=== PATIENT | female | born 1960 | race Hispanic/Latino ===

== ENCOUNTER 2017-11-30 10:54 | Emergency (ER) | payer BC, SELFPAY ==
[2017-11-30 11:53] LABS: Absolute Lymphocytes (CBC) 1.5 K/uL (0.7-4.9); Absolute Monocytes 0.5 K/uL (0.1-1.3); Absolute Neutrophil 4.2 K/uL (1.8-8.0); Basophils % 0.6 % (0-1.3); Eosinophils % 0.7 % (0-4.4); Hematocrit 40.1 % (36.0-45.0); Lymphocytes % 24.4 % (15.3-44.8); MCH 27.8 pg (27.0-35.0); MPV 8.7 fL (7.6-11.3); Monocytes % 7.2 % (3.3-12.3); RBC Red Blood Cell Count 4.72 M/uL (3.86-4.86)
[2017-11-30 11:55] LABS: Protime INR 1.01
[2017-11-30 12:00] LABS: Potassium 3.7 mEq/L (3.6-5.0)
[2017-11-30 12:06] LABS: Bilirubin Direct 0.1 mg/dL (0-0.2); Bilirubin Total 0.7 mg/dL (0.3-1.2); Magnesium 1.6 mg/dL (1.8-2.5); Protein, Total 7.3 g/dL (6.0-8.3)
[2017-11-30] MEDS ORDERED: Magnesium Sulfate 2gm IVPB 2 G/50 ML BAG IV ONE (13:02)
--- NOTE | 2017-11-30 13:50 | RAD REPORT ---
EXAM DESCRIPTION: Barbie Single View11/30/2017 11:50 am CLINICAL HISTORY: sob COMPARISON: July 2017 FINDINGS: The lungs appear clear of acute infiltrate. The heart is normal size IMPRESSION: No acute abnormalities displayed
--- NOTE | 2017-11-30 13:59 | ER ---
Nurse's Notes [facility] Name: Zeynep Francis Age: 57 yrs Sex: Female : 1960 Arrival Date: 11/30/2017 Time: 10:55 Bed 20 Private MD: Diagnosis: Hypomagnesemia;Dyspnea, unspecified Presentation: 11/30 10:58 Presenting complaint: Patient states: SOB, pain with deep inspiration, and headache hb upon waking today. Transition of care: patient was not received from another setting of care. Onset of symptoms was November 30, 2017. Care prior to arrival: Medication(s) given: albuterol inhaler. 10:58 Method Of Arrival: Ambulatory hb 10:58 Acuity: MARLI 3 hb Triage Assessment: 11:11 General: Appears in no apparent distress. Respiratory: Onset: The symptoms/episode tw2 began/occurred this morning, the patient has mild shortness of breath. Historical: - Allergies: 11:00 PENICILLINS; hb - Home Meds: 11:00 glipizide 5 mg Oral tab 2 times per day [Active]; metformin 1,000 mg Oral tab 1 tab 2 hb times per day [Active]; lisinopril 2.5 mg Oral tab 1 tab once daily [Active]; albuterol sulfate 2.5 mg /3 mL (0.083 %) Inhl nebu [Active]; - PMHx: 11:00 Arthritis; brusitis; Diabetes - NIDDM; Hyperlipidemia; Hypertension; hb - PSHx: 11:00 ; Cholecystectomy; hb - Immunization history:: Adult Immunizations up to date. - Social history:: Smoking status: Patient/guardian denies using tobacco. Screenin:11 Abuse screen: Denies threats or abuse. Nutritional screening: No deficits noted. tw2 Tuberculosis screening: No symptoms or risk factors identified. Fall Risk None identified. Assessment: 11:08 General: Appears in no apparent distress. well groomed, Behavior is calm, cooperative, tw2 appropriate for age. Pain: Denies pain. Neuro: Level of Consciousness is awake, alert, obeys commands, Oriented to person, place, time, situation. Cardiovascular: Heart tones S1 S2 Capillary refill < 3 seconds Patient's skin is warm and dry. Rhythm is regular. Respiratory: Reports shortness of breath at rest Airway is patent Respiratory effort is even, unlabored, Respiratory pattern is regular, symmetrical, Breath sounds are clear. GI: Abdomen is round Bowel sounds present X 4 quads. : No signs and/or symptoms were reported regarding the genitourinary system. EENT: No signs and/or symptoms were reported regarding the EENT system. Derm: No signs and/or symptoms reported regarding the dermatologic system. Musculoskeletal: Range of motion: intact in all extremities. 12:40 Reassessment: Patient appears in no apparent distress at this time. No changes from tw2 previously documented assessment. Patient and/or family updated on plan of care and expected duration. Pain level reassessed. Patient is alert, oriented x 3, equal unlabored respirations, skin warm/dry/pink. 13:42 Reassessment: Patient appears in no apparent distress at this time. No changes from tw2 previously documented assessment. Patient and/or family updated on plan of care and expected duration. Pain level reassessed. Patient is alert, oriented x 3, equal unlabored respirations, skin warm/dry/pink. 14:21 Reassessment: Patient appears in no apparent distress at this time. No changes from tw2 previously documented assessment. Patient and/or family updated on plan of care and expected duration. Pain level reassessed. Patient is alert, oriented x 3, equal unlabored respirations, skin warm/dry/pink. Vital Signs: 10:59 BP 125 / 95; Pulse 76; Resp 18; Temp 97.8(TE); Pulse Ox 98% on R/A; Weight 81.65 kg hb (R); Height 4 ft. 11 in. (149.86 cm); Pain 10/10; 12:39 BP 114 / 74; Pulse 77; Resp 12; Pulse Ox 96% on R/A; tw2 13:42 BP 106 / 61; Pulse 67; Resp 15; Pulse Ox 95% on R/A; tw2 14:20 BP 107 / 57; Pulse 79; Resp 17; Pulse Ox 96% on R/A; tw2 10:59 Body Mass Index 36.36 (81.65 kg, 149.86 cm) hb ED Course: 10:55 Patient arrived in ED. as 10:59 Triage completed. hb 10:59 Arm band placed on right wrist. hb 11:01 Omer Valencia PA is PHCP. jr8 11:01 Buzz Zelaya MD is Attending Physician. jr8 11:04 Ngozi Heck, RN is Primary Nurse. tw2 11:10 Bed in low position. Call light in reach. Pulse ox on. NIBP on. tw2 11:11 No provider procedures requiring assistance completed. tw2 11:40 DD Sent. ag 11:40 Basic Metabolic Panel Sent. ag 11:40 BNP Sent. ag 11:40 CBC with Diff Sent. ag 11:40 LFT's Sent. ag 11:40 Magnesium Sent. ag 11:40 PT-INR Sent. ag 11:40 Troponin (emerg Dept Use Only) Sent. ag 11:40 Inserted saline lock: 20 gauge in right antecubital area, using aseptic technique. ag ,using aseptic technique. IV done by EMS student Dianne Lindquist Assisted and witnessed by me Blood collected. 11:48 X-ray completed. Portable x-ray completed in exam room. Patient tolerated procedure la2 well. 14:21 IV discontinued, intact, bleeding controlled, No redness/swelling at site. Pressure tw2 dressing applied. Administered Medications: 12:47 Drug: Magnesium Sulfate 2 grams Route: IVPB; Infused Over: 2 hrs; Site: right tw2 antecubital; 13:52 Follow up: Response: No adverse reaction; IV Status: Completed infusion tw2 Outcome: 13:59 Discharge ordered by . jr8 14:21 Discharged to home ambulatory. tw2 14:21 Condition: stable 14:21 Discharge instructions given to patient, Instructed on discharge instructions, follow up and referral plans. medication usage, Demonstrated understanding of instructions, follow-up care, medications, Prescriptions given X 1. 14:22 Patient left the ED. tw2 Signatures: Rizwana Lockhart Josh, PA PA jr8 Umu Ladd Heather, RN RN Ngozi Heck, RN RN tw2 Enriqueta Crockett la2 Corrections: (The following items were deleted from the chart) 11:00 10:59 BP 125 / 95; Pulse 76bpm; Resp 18bpm; Pulse Ox 98% RA; Temp 97.8F Temporal; 90.72 hb kg Reported; Height 4 ft. 11 in.; BMI: 40.3; Pain 10/10; hb 14:18 13:42 BP 166 / 1; Pulse 67bpm; Resp 15bpm; Pulse Ox 95% RA; tw2 tw2
--- NOTE | 2017-11-30 13:59 | EDPHYS ---
Physician Documentation [facility] Name: Zeynep Francis Age: 57 yrs Sex: Female : 1960 Arrival Date: 11/30/2017 Time: 10:55 Bed 20 Private MD: ED Physician Buzz Zelaya HPI: 11/30 11:54 This 57 yrs old Female presents to ER via Ambulatory with complaints of jr8 Shortness Of Breath. 11:54 The patient has shortness of breath at rest. Onset: The symptoms/episode began/occurred jr8 acutely, today. Duration: The symptoms are continuous. The patient's shortness of breath is aggravated by talking, walking. Associated signs and symptoms: Pertinent positives: chest pain, dizziness. Severity of symptoms: At their worst the symptoms were moderate in the emergency department the symptoms are unchanged. The patient has not experienced similar symptoms in the past. The patient has not recently seen a physician. Historical: - Allergies: 11:00 PENICILLINS; hb - Home Meds: 11:00 glipizide 5 mg Oral tab 2 times per day [Active]; metformin 1,000 mg Oral tab 1 tab 2 hb times per day [Active]; lisinopril 2.5 mg Oral tab 1 tab once daily [Active]; albuterol sulfate 2.5 mg /3 mL (0.083 %) Inhl nebu [Active]; - PMHx: 11:00 Arthritis; brusitis; Diabetes - NIDDM; Hyperlipidemia; Hypertension; hb - PSHx: 11:00 ; Cholecystectomy; hb - Immunization history:: Adult Immunizations up to date. - Social history:: Smoking status: Patient/guardian denies using tobacco. ROS: 11:54 Eyes: Negative for injury, pain, redness, and discharge, ENT: Negative for injury, jr8 pain, and discharge, Neck: Negative for injury, pain, and swelling, Abdomen/GI: Negative for abdominal pain, nausea, vomiting, diarrhea, and constipation, Back: Negative for injury and pain, MS/Extremity: Negative for injury and deformity, Skin: Negative for injury, rash, and discoloration. 11:54 Cardiovascular: Positive for chest pain, Negative for edema, orthopnea, palpitations, paroxysmal nocturnal dyspnea. 11:54 Respiratory: Positive for dyspnea on exertion, shortness of breath. 11:54 Neuro: Positive for dizziness, Negative for altered mental status, gait disturbance, headache, hearing loss, loss of consciousness, numbness, seizure activity, speech changes, syncope, near syncope, tingling, tinnitus, tremor, visual changes, weakness. Exam: 11:54 Eyes: Pupils equal round and reactive to light, extra-ocular motions intact. Lids and jr8 lashes normal. Conjunctiva and sclera are non-icteric and not injected. Cornea within normal limits. Periorbital areas with no swelling, redness, or edema. ENT: Nares patent. No nasal discharge, no septal abnormalities noted. Tympanic membranes are normal and external auditory canals are clear. Oropharynx with no redness, swelling, or masses, exudates, or evidence of obstruction, uvula midline. Mucous membranes moist. Neck: Trachea midline, no thyromegaly or masses palpated, and no cervical lymphadenopathy. Supple, full range of motion without nuchal rigidity, or vertebral point tenderness. No Meningismus. Cardiovascular: Regular rate and rhythm with a normal S1 and S2. No gallops, murmurs, or rubs. Normal PMI, no JVD. No pulse deficits. Respiratory: Lungs have equal breath sounds bilaterally, clear to auscultation and percussion. No rales, rhonchi or wheezes noted. No increased work of breathing, no retractions or nasal flaring. Abdomen/GI: Soft, non-tender, with normal bowel sounds. No distension or tympany. No guarding or rebound. No evidence of tenderness throughout. Back: No spinal tenderness. No costovertebral tenderness. Full range of motion. Skin: Warm, dry with normal turgor. Normal color with no rashes, no lesions, and no evidence of cellulitis. MS/ Extremity: Pulses equal, no cyanosis. Neurovascular intact. Full, normal range of motion. Neuro: Awake and alert, GCS 15, oriented to person, place, time, and situation. Cranial nerves II-XII grossly intact. Motor strength 5/5 in all extremities. Sensory grossly intact. Cerebellar exam normal. Normal gait. Vital Signs: 10:59 BP 125 / 95; Pulse 76; Resp 18; Temp 97.8(TE); Pulse Ox 98% on R/A; Weight 81.65 kg hb (R); Height 4 ft. 11 in. (149.86 cm); Pain 10/10; 12:39 BP 114 / 74; Pulse 77; Resp 12; Pulse Ox 96% on R/A; tw2 13:42 BP 106 / 61; Pulse 67; Resp 15; Pulse Ox 95% on R/A; tw2 14:20 BP 107 / 57; Pulse 79; Resp 17; Pulse Ox 96% on R/A; tw2 10:59 Body Mass Index 36.36 (81.65 kg, 149.86 cm) hb MDM: 11:01 Patient medically screened. [facility] 13:58 Data reviewed: vital signs, nurses notes, lab test result(s), EKG, radiologic studies, jr plain films, and as a result, I will discharge patient. Data interpreted: Pulse oximetry: on room air is 95 %. Interpretation: normal. Counseling: I had a detailed discussion with the patient and/or guardian regarding: the historical points, exam findings, and any diagnostic results supporting the discharge/admit diagnosis, lab results, radiology results, the need for outpatient follow up, a family practitioner, to return to the emergency department if symptoms worsen or persist or if there are any questions or concerns that arise at home. Response to treatment: the patient's symptoms have markedly improved after treatment. 11/30 11:23 Order name: Basic Metabolic Panel [facility] 11/30 11:23 Order name: BNP [facility] 11/30 11:23 Order name: CBC with Diff [facility] 11/30 11:23 Order name: LFT's [facility] 11/30 11:23 Order name: Magnesium [facility] 11/30 11:23 Order name: PT-INR [facility] 11/30 11:23 Order name: Troponin (emerg Dept Use Only) [facility] 11/30 11:23 Order name: DD [facility] 11/30 11:54 Order name: CBC with Automated Diff; Complete Time: 11:55 EDAK 11/30 11:55 Order name: Protime (+INR); Complete Time: 12:06 EDAK 11/30 11:55 Order name: D-Dimer; Complete Time: 12:06 EDMS 11/30 12:00 Order name: Basic Metabolic Panel; Complete Time: 12:32 EDMS 11/30 12:06 Order name: Liver (Hepatic) Function; Complete Time: 12:32 EDMS 11/30 12:06 Order name: Magnesium; Complete Time: 12:32 EDMS 11/30 11:23 Order name: XRAY Chest (1 view) [facility] 11/30 11:23 Order name: EKG; Complete Time: 11:24 [facility] 11/30 11:23 Order name: Cardiac monitoring; Complete Time: 11:39 [facility] 11/30 11:23 Order name: EKG - Nurse/Tech; Complete Time: 11:39 [facility] 11/30 11:23 Order name: IV Saline Lock; Complete Time: 11:39 [facility] 11/30 11:23 Order name: Labs collected and sent; Complete Time: 11:39 [facility] 11/30 11:23 Order name: O2 Per Protocol; Complete Time: 11:40 [facility] 11/30 11:23 Order name: O2 Sat Monitoring; Complete Time: 11:40 [facility] 11/30 11:23 Order name: Urine Dipstick-Ancillary (obtain specimen); Complete Time: 14:11 [facility] 11/30 12:06 Order name: Troponin (Emerg Dept Use Only); Complete Time: 12:32 [facility] 11/30 12:09 Order name: BNP B-Type Natriuretic Peptide; Complete Time: 12:32 [facility] 11/30 13:51 Order name: RAD; Complete Time: 13:58 [facility] 11/30 14:11 Order name: Urine Microscopic Only 11/30 14:15 Order name: Urine Dipstick--Ancillary (enter results) bd Administered Medications: 12:47 Drug: Magnesium Sulfate 2 grams Route: IVPB; Infused Over: 2 hrs; Site: right tw2 antecubital; 13:52 Follow up: Response: No adverse reaction; IV Status: Completed infusion tw2 Disposition: 11/30/17 13:59 Discharged to Home. Impression: Hypomagnesemia, Dyspnea, unspecified. - Condition is Stable. - Discharge Instructions: Hypomagnesemia, Shortness of Breath. - Prescriptions for Macrobid 100 mg Oral Capsule - take 1 capsule by ORAL route every 12 hours for 7 days; 14 capsule. - Medication Reconciliation Form, Thank You Letter, Antibiotic Education, Prescription Opioid Use, Work release form form. - Follow up: Private Physician; When: 1 - 2 days; Reason: Recheck today's complaints, Continuance of care, Re-evaluation by your physician. - Problem is new. - Symptoms have improved. Addendum: 12/02/2017 08:11 Co-signature as Attending Physician, Buzz Zelaya MD I agree with the assessment and c gomez plan of care. Signatures: Dispatcher [employer] Buzz Bravo MD MD cha Roszak, Josh, PA PA jr8 Kimmy Aparicio, RN RN Ngozi Heck RN RN tw2
[2017-11-30 14:26] LABS: Urine Blood NEGATIVE (NEG); Urine Glucose NEGATIVE (NEG); Urine Protein NEGATIVE (NEG); Urine pH 6.5 (5.0-7.0)
[2017-11-30 14:50] LABS: Urine Bacteria LOADED /HPF (<20); Urine Culture Reflex Order REFLEXED; Urine RBC <5 /HPF (NONE SEEN)
== END 2017-11-30 14:22 | disposition home or self-care (01) ==
LOC: ER 10:54
DX: E83.42 Hypomagnesemia (principal); I10 Essential (primary) hypertension; E11.9 Type 2 diabetes mellitus without complications; Z88.0 Allergy status to penicillin
CPT/HCPCS: 36415; 71045; 80048; 80076; 81003; 81015; 83735; 83880; 84484; 85025; 85379; 85610; 87077; 87086; 87088; 87186; 96365; 99284; J3475

== ENCOUNTER 2018-05-20 18:59 | Emergency (ER) | payer SELFPAY ==
[2018-05-20] MEDS ORDERED: MECLIZINE HCL 12.5 MG TAB ONE (19:37)
[2018-05-20] MEDS ORDERED: NA CHLORIDE 0.9% 1,000 ML ONE (19:37)
[2018-05-20] MEDS ORDERED: ALBUTEROL 2.5 MG/3 ML NEB SOL ONE (19:37)
[2018-05-20] MEDS ORDERED: IPRATROPIUM BROM 0.5MG/2.5ML ONE (19:37)
[2018-05-20 19:45] LABS: Arterial Blood Carboxyhemoglob 1.3 % (0-1.5); Blood O2 Saturation 96.1 % (92-98.5)
--- NOTE | 2018-05-20 19:59 | RAD REPORT ---
EXAM DESCRIPTION: CT - Head Brain Wo Cont - 05/20/2018 7:45 pm CLINICAL HISTORY: Dizziness COMPARISON: 2017 TECHNIQUE: Computed axial tomography of the head was obtained. IV contrast was not requested. All CT scans are performed using dose optimization technique as appropriate and may include automated exposure control or mA/KV adjustment according to patient size. FINDINGS: An intracranial bleed is not seen . The ventricles are normal in caliber. No extra-axial fluid collection is noted. Fluid within the sinuses/ mastoids is not seen. IMPRESSION: No acute intracranial abnormality is seen. If patient's symptoms persist MRI of the bra in would be recommended.
[2018-05-20 20:24] LABS: Absolute Lymphocytes (CBC) 2.3 K/uL (0.7-4.9); Absolute Monocytes 0.4 K/uL (0.1-1.3); Absolute Neutrophil 3.5 K/uL (1.8-8.0); Basophils % 0.6 % (0-1.3); Eosinophils % 0.8 % (0-4.4); Hematocrit 36.5 % (36.0-45.0); Lymphocytes % 36.3 % (15.3-44.8); MCH 29.5 pg (27.0-35.0); MCV 88.2 fL (80-100); MPV 8.1 fL (7.6-11.3); Monocytes % 7.1 % (3.3-12.3); RBC Red Blood Cell Count 4.14 M/uL (3.86-4.86)
[2018-05-20 20:28] LABS: Protime INR 0.92
[2018-05-20 21:01] LABS: ALT/SGPT 15 U/L (12-78); AST/SGOT 20 U/L (15-37); Albumin 3.5 g/dL (3.4-5.0); Alkaline Phosphatase 69 U/L (45-117); BUN Blood Urea Nitrogen 16 mg/dL (7-18); Bicarbonate 26 mmol/L (21-32); Bilirubin Direct < 0.1 mg/dL (0-0.2); Bilirubin Total 0.2 mg/dL (0.2-1.0); CKMB Creatine Kinase MB < 1.0 ng/mL (0.3-3.6); Creatine Phosphokinase 76 U/L (26-192); Glucose Level 116 mg/dL (74-106); Magnesium 2.1 mg/dL (1.8-2.4); NT PRO-BNP 92 pg/mL (<125); Potassium 3.8 mmol/L (3.5-5.1); Protein, Total 7.6 g/dL (6.4-8.2); Sodium Level 140 mmol/L (136-145); Troponin (Emerg Dept Use Only) < 0.02 ng/mL (0.0-0.045)
--- NOTE | 2018-05-20 21:24 | RAD REPORT ---
EXAM DESCRIPTION: Barbie Single View05/20/2018 7:52 pm CLINICAL HISTORY: Shortness of breath COMPARISON: November 2017 FINDINGS: The lungs appear clear of acute infiltrate. The heart is normal size IMPRESSION: No acute abnormalities displayed
--- NOTE | 2018-05-20 21:45 | EDPHYS ---
Physician Documentation [facility] Name: Zeynep Francis Age: 57 yrs Sex: Female : 1960 Arrival Date: 05/20/2018 Time: 19:02 Bed 16 Private MD: ED Physician Ahmet Nicholas HPI: 05/20 19:24 This 57 yrs old Female presents to ER via Ambulatory with complaints of pkl Dizziness, Breathing Difficulty. 19:24 The patient presents with sense of spinning. Onset: The symptoms/episode began/occurred pkl 2 day(s) ago. Associated signs and symptoms: Pertinent positives: shortness of breath, hoarseness of voice. Historical: - Allergies: 19:07 PENICILLINS; mg2 19:07 Aspirin; mg2 - Home Meds: 19:07 albuterol sulfate 2.5 mg /3 mL (0.083 %) Inhl nebu [Active]; glipizide 10 mg oral tab mg2 [Active]; lisinopril 2.5 mg Oral tab 1 tab once daily [Active]; metformin 1,000 mg Oral tab 1 tab 2 times per day [Active]; 19:07 pioglitazone 30 mg oral tab 1 tab once daily [Active]; mg2 - PMHx: 19:07 Diabetes - NIDDM; Hyperlipidemia; Hypertension; mg2 - PSHx: 19:07 Cholecystectomy; c section; mg2 - Immunization history:: Flu vaccine is up to date. - Social history:: Smoking status: Patient/guardian denies using tobacco, Patient/guardian denies using alcohol, street drugs, IV drugs. - Ebola Screening: : No symptoms or risks identified at this time. ROS: 19:24 Eyes: Negative for injury, pain, redness, and discharge. pkl 19:24 ENT: Positive for hoarseness. 19:24 Neck: Negative for stiffness. 19:24 Cardiovascular: Positive for chest pain. 19:24 Respiratory: Negative for shortness of breath. 19:24 Abdomen/GI: Negative for abdominal pain, nausea, vomiting, and diarrhea. 19:24 Back: Negative for acute changes. 19:24 : Negative for urinary symptoms. 19:24 MS/extremity: Negative for acute changes. 19:24 Skin: Negative for rash. 19:24 Neuro: Positive for dizziness, Negative for altered mental status. Exam: 19:24 Head/Face: Normocephalic, atraumatic. Eyes: Pupils equal round and reactive to light, pkl extra-ocular motions intact. Lids and lashes normal. Conjunctiva and sclera are non-icteric and not injected. Cornea within normal limits. Periorbital areas with no swelling, redness, or edema. ENT: Nares patent. No nasal discharge, no septal abnormalities noted. Tympanic membranes are normal and external auditory canals are clear. Oropharynx with no redness, swelling, or masses, exudates, or evidence of obstruction, uvula midline. Mucous membranes moist. Neck: Trachea midline, no thyromegaly or masses palpated, and no cervical lymphadenopathy. Supple, full range of motion without nuchal rigidity, or vertebral point tenderness. No Meningismus. Chest/axilla: Normal chest wall appearance and motion. Nontender with no deformity. No lesions are appreciated. Cardiovascular: Regular rate and rhythm with a normal S1 and S2. No gallops, murmurs, or rubs. Normal PMI, no JVD. No pulse deficits. 19:24 Respiratory: the patient does not display signs of respiratory distress, Respirations: normal, Breath sounds: are clear throughout. 19:24 Abdomen/GI: Bowel sounds: normal, Palpation: abdomen is soft and non-tender, in all quadrants. 19:24 Back: Exam negative for acute changes. 19:24 : Exam negative for acute changes. 19:24 Musculoskeletal/extremity: Exam is negative for acute changes. 19:24 Skin: Exam negative for rash. 19:24 Neuro: Orientation: is normal, Mentation: is normal, Cranial nerves: grossly normal, Motor: is normal. Vital Signs: 19:08 BP 125 / 74; Pulse 93; Resp 18; Temp 97.4; Pulse Ox 98% ; Weight 81.65 kg; Height 4 ft. mg2 11 in. (149.86 cm); Pain 7/10; 20:23 BP 109 / 56; Pulse 80; Resp 18; Pulse Ox 100% on Nebulizer Mask; ak1 19:08 Body Mass Index 36.36 (81.65 kg, 149.86 cm) mg2 MDM: 19:10 Patient medically screened. pkl 21:41 Data reviewed: vital signs, nurses notes, lab test result(s), EKG, radiologic studies, pkl CT scan, plain films. 05/20 19:20 Order name: Basic Metabolic Panel; Complete Time: 21:39 mg2 05/20 19:20 Order name: CBC with Diff; Complete Time: 21:39 mg2 05/20 19:20 Order name: Ckmb; Complete Time: 21:39 mg2 05/20 19:20 Order name: CPK; Complete Time: 21:39 mg2 05/20 19:20 Order name: LFT's; Complete Time: 21:39 mg2 05/20 19:20 Order name: Magnesium; Complete Time: 21:39 mg2 05/20 19:20 Order name: NT PRO-BNP; Complete Time: 21:39 mg2 05/20 19:20 Order name: PT-INR; Complete Time: 21:39 mg2 05/20 19:20 Order name: Ptt, Activated; Complete Time: :39 mg2 05/20 19:20 Order name: Troponin (emerg Dept Use Only); Complete Time: 21:39 mg2 05/20 19:20 Order name: D-Dimer; Complete Time: 21:39 mg2 05/20 19:20 Order name: ABG; Complete Time: 19:53 mg2 05/20 19:22 Order name: Hemoglobin A1c mg2 05/20 20:39 Order name: Urine Dipstick--Ancillary (enter results) ms 05/20 19:20 Order name: XRAY Chest (1 view); Complete Time: 21:39 mg2 05/20 19:20 Order name: EKG; Complete Time: 19:21 mg2 05/20 19:20 Order name: Cardiac monitoring; Complete Time: 19:40 mg2 05/20 19:20 Order name: EKG - Nurse/Tech; Complete Time: 19:28 mg2 05/20 19:20 Order name: IV Saline Lock; Complete Time: 20:06 mg2 05/20 19:20 Order name: Labs collected and sent; Complete Time: 20:07 mg2 05/20 19:20 Order name: O2 Per Protocol; Complete Time: 19:28 mg2 05/20 19:20 Order name: O2 Sat Monitoring; Complete Time: 19:28 mg2 05/20 19:20 Order name: Urine Dipstick-Ancillary (obtain specimen); Complete Time: 20:03 mg2 05/20 19:22 Order name: CT Head Brain wo Cont; Complete Time: 20:01 mg2 Administered Medications: 19:44 Drug: Antivert 25 mg Route: PO; ak1 20:22 Follow up: Response: No adverse reaction ak1 20:06 Drug: NS 0.9% 1000 ml Route: IV; Rate: 100 ml/hr; Site: right antecubital; ak1 21:54 Follow up: IV Status: Order to discontinue infusion ak1 20:06 Drug: Albuterol - atroVENT (3:1) (2.5 mg - 0.5 mg) 3 ml Route: Nebulizer; ak1 20:22 Follow up: Response: No adverse reaction ak1 Disposition: 05/20/18 21:44 Discharged to Home. Impression: Acute labyrinthitis. Acute dyspnea ( Resolved ). - Condition is Stable. - Prescriptions for Antivert 25 mg Oral Tablet - take 1 tablet by ORAL route every 8 hours As needed; 20 tablet. - Medication Reconciliation Form, Thank You Letter, Antibiotic Education, Prescription Opioid Use form. - Follow up: Private Physician; When: 2 - 3 days; Reason: Re-evaluation by your physician. - Problem is new. - Symptoms have improved. Signatures: Dispatcher [employer] EDPA Ahmet Nicholas MD MD pkl Qi Bethea RN RN ak1 [facility] Agustin RN RN mg2 Corrections: (The following items were deleted from the chart) 21:57 21:44 05/20/2018 21:44 Discharged to Home. Impression: Acute labyrinthitis. Acute ak1 dyspnea ( Resolved ). Condition is Stable. Forms are Medication Reconciliation Form, Thank You Letter, Antibiotic Education, Prescription Opioid Use. Follow up: Private Physician; When: 2 - 3 days; Reason: Re-evaluation by your physician. Problem is new. Symptoms have improved. pkl
--- NOTE | 2018-05-20 21:45 | ER ---
Nurse's Notes [facility] Name: Zeynep Francis Age: 57 yrs Sex: Female : 1960 Arrival Date: 05/20/2018 Time: 19:02 Bed 16 Private MD: Diagnosis: Acute labyrinthitis. Acute dyspnea ( Resolved ) Presentation: 05/20 19:04 Presenting complaint: Patient states: she has difficulty breathing and dizziness for 2 mg2 days. Transition of care: patient was not received from another setting of care. Onset of symptoms was May 18, 2018. Risk Assessment: Do you want to hurt yourself or someone else? Patient reports no desire to harm self or others. Initial Sepsis Screen: Does the patient meet any 2 criteria? No. Patient's initial sepsis screen is negative. Does the patient have a suspected source of infection? No. Patient's initial sepsis screen is negative. Care prior to arrival: None. 19:04 Method Of Arrival: Ambulatory mg2 19:04 Acuity: MARLI 3 mg2 Triage Assessment: 19:41 General: Appears in no apparent distress. Behavior is calm, cooperative. Pain: ak1 Complains of pain in headache, chest pain. EENT: No signs and/or symptoms were reported regarding the EENT system. 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 Gait is steady, Speech is normal, Facial symmetry appears normal. Cardiovascular: Reports shortness of breath. 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 GI: No signs and/or symptoms were reported involving the gastrointestinal system. : No signs and/or symptoms were reported regarding the genitourinary system. Derm: No signs and/or symptoms reported regarding the dermatologic system. Musculoskeletal: No signs and/or symptoms reported regarding the musculoskeletal system. Historical: - Allergies: 19:07 PENICILLINS; mg2 19:07 Aspirin; mg2 - Home Meds: 19:07 albuterol sulfate 2.5 mg /3 mL (0.083 %) Inhl nebu [Active]; glipizide 10 mg oral tab mg2 [Active]; lisinopril 2.5 mg Oral tab 1 tab once daily [Active]; metformin 1,000 mg Oral tab 1 tab 2 times per day [Active]; 19:07 pioglitazone 30 mg oral tab 1 tab once daily [Active]; mg2 - PMHx: 19:07 Diabetes - NIDDM; Hyperlipidemia; Hypertension; mg2 - PSHx: 19:07 Cholecystectomy; c section; mg2 - Immunization history:: Flu vaccine is up to date. - Social history:: Smoking status: Patient/guardian denies using tobacco, Patient/guardian denies using alcohol, street drugs, IV drugs. - Ebola Screening: : No symptoms or risks identified at this time. Screenin:15 Abuse screen: Denies threats or abuse. Denies injuries from another. Nutritional mg2 screening: No deficits noted. Tuberculosis screening: No symptoms or risk factors identified. Fall Risk None identified. Assessment: 19:42 Cardiovascular: Rhythm is sinus rhythm. Respiratory: Airway is patent Respiratory ak1 effort is even, unlabored, Breath sounds are clear. 19:43 Reassessment: pt in CT.. ak1 21:01 Reassessment: Patient appears in no apparent distress at this time. Patient and/or ak1 family updated on plan of care and expected duration. Pain level reassessed. pt resting with eyes closed, resp even and unlabored. will continue to monitor. Vital Signs: 19:08 BP 125 / 74; Pulse 93; Resp 18; Temp 97.4; Pulse Ox 98% ; Weight 81.65 kg; Height 4 ft. mg2 11 in. (149.86 cm); Pain 7/10; 20:23 BP 109 / 56; Pulse 80; Resp 18; Pulse Ox 100% on Nebulizer Mask; ak1 19:08 Body Mass Index 36.36 (81.65 kg, 149.86 cm) mg2 ED Course: 19:02 Patient arrived in ED. rg4 19:05 Triage completed. mg2 19:10 Ahmet Nicholas MD is Attending Physician. pkl 19:14 Qi Bethea, RN is Primary Nurse. ak1 19:15 Patient has correct armband on for positive identification. Pulse ox on. NIBP on. mg2 19:41 Arm band placed on Patient placed Patient notified of wait time. ak1 19:44 CT Head Brain wo Cont In Process Unspecified. EDMS 19:51 XRAY Chest (1 view) In Process Unspecified. EDMS 20:07 Initial lab(s) drawn, by me, sent to lab. Urine collected: clean catch specimen, EKG ak1 done, by ED staff, reviewed by Ahmet Nicholas MD. Inserted saline lock: 20 gauge in right antecubital area, using aseptic technique. Blood collected. 21:01 No provider procedures requiring assistance completed. ak1 21:50 IV discontinued, intact, bleeding controlled, No redness/swelling at site. Pressure ak1 dressing applied. Administered Medications: 19:44 Drug: Antivert 25 mg Route: PO; ak1 20:22 Follow up: Response: No adverse reaction ak1 20:06 Drug: NS 0.9% 1000 ml Route: IV; Rate: 100 ml/hr; Site: right antecubital; ak1 21:54 Follow up: IV Status: Order to discontinue infusion ak1 20:06 Drug: Albuterol - atroVENT (3:1) (2.5 mg - 0.5 mg) 3 ml Route: Nebulizer; ak1 20:22 Follow up: Response: No adverse reaction ak1 Outcome: 21:44 Discharge ordered by . pkliliana 21:49 Discharged to home ambulatory. ak1 21:49 Condition: improved 21:49 Discharge instructions given to patient, Instructed on discharge instructions, follow up and referral plans. medication usage, Demonstrated understanding of instructions, follow-up care, medications, Prescriptions given X 1. 21:57 Patient left the ED. ak1 Signatures: Dispatcher [employer] EDMS Ahmet Nicholas MD MD pkl Krenek, Amber RN RN ak1 Martha Lopez4 Kaiser Agustin RN RN mg2
[2018-05-20 22:30] LABS: Urine Blood NEGATIVE (NEG); Urine Glucose NEGATIVE (NEG); Urine Protein NEGATIVE (NEG); Urine Specific Gravity 1.025 (1.005-1.030)
--- NOTE | 2018-05-21 12:12 | EKG ---
Test Date: 2018-05-20 Test Time: 19:25:28 Stock Car Driver: SURESH MEASUREMENT RESULTS: Intervals: Rate: 82 SD: 172 QRSD: 62 QT: 366 QTc: 427 [place]: P: 32 SD: 172 QRS: 4 T: 18 INTERPRETIVE STATEMENTS: Normal sinus rhythm Low voltage QRS Cannot rule out Anterior infarct, age undetermined Abnormal ECG Compared to ECG 07/18/2017 15:46:20 Myocardial infarct finding now present Electronically Signed On 05-21-18 12:08:51 CDT by Jasvir An
== END 2018-05-20 21:57 | disposition home or self-care (01) ==
LOC: ER 18:59
DX: H83.09 Labyrinthitis, unspecified ear (principal); I10 Essential (primary) hypertension; E78.5 Hyperlipidemia, unspecified; E11.9 Type 2 diabetes mellitus without complications; Z88.0 Allergy status to penicillin; Z88.6 Allergy status to analgesic agent
CPT/HCPCS: 36415; 70450; 71045; 80048; 80076; 81003; 82550; 82553; 82805; 83735; 83880; 84484; 85025; 85379; 85610; 85730; 93005; 94640; 96360; 96361; 99285; J7030

== ENCOUNTER 2018-11-18 12:03 | Emergency (ER) | payer SELFPAY ==
[2018-11-18 12:57] LABS: Absolute Lymphocytes (CBC) 1.6 K/uL (0.7-4.9); Absolute Monocytes 0.4 K/uL (0.1-1.3); Absolute Neutrophil 2.3 K/uL (1.8-8.0); Basophils % 0.8 % (0-1.3); Eosinophils % 0.7 % (0-4.4); Hematocrit 37.4 % (36.0-45.0); MPV 8.4 fL (7.6-11.3); Monocytes % 8.1 % (3.3-12.3); RBC Red Blood Cell Count 4.42 M/uL (3.86-4.86)
[2018-11-18 13:17] LABS: BUN Blood Urea Nitrogen 20 mg/dL (7-18); Bicarbonate 29 mmol/L (21-32); Glucose Level 119 mg/dL (74-106); Potassium 4.2 mmol/L (3.5-5.1); Sodium Level 141 mmol/L (136-145); Troponin (Emerg Dept Use Only) < 0.02 ng/mL (0.0-0.045)
[2018-11-18 13:17] LABS: Urine Blood 2+ (NEG); Urine Glucose NEGATIVE (NEG); Urine Protein NEGATIVE (NEG)
--- NOTE | 2018-11-18 13:53 | ER ---
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 Transition of care: patient was not received from another setting of care. Onset of symptoms was November 18, 2018. Risk Assessment: Do you want to hurt yourself or someone else? Patient reports no desire to harm self or others. Care prior to arrival: None. 12:13 Method Of Arrival: Ambulatory hb 12:13 Acuity: MARLI 3 hb 14:14 Initial Sepsis Screen: Does the patient meet any 2 criteria? No. Patient's initial bp sepsis screen is negative. Does the patient have a suspected source of infection? No. Patient's initial sepsis screen is negative. Triage Assessment: 12:30 General: Appears in no apparent distress. comfortable, Behavior is calm, cooperative, bp appropriate for age. Pain: Denies pain. Historical: - Allergies: 12:17 PENICILLINS; hb 12:17 Aspirin; hb - Home Meds: 12:17 albuterol sulfate 2.5 mg /3 mL (0.083 %) Inhl nebu [Active]; glipizide 10 mg Oral tab hb [Active]; lisinopril 2.5 mg Oral tab 1 tab once daily [Active]; metformin 1,000 mg Oral tab 1 tab 2 times per day [Active]; pioglitazone 30 mg Oral tab 1 tab once daily [Active]; - PMHx: 12:17 Diabetes - NIDDM; Hyperlipidemia; Hypertension; hb - PSHx: 12:17 Cholecystectomy; c section; hb - Immunization history:: Adult Immunizations up to date. - Social history:: Smoking status: Patient/guardian denies using tobacco. - Ebola Screening: : No symptoms or risks identified at this time. - Family history:: not pertinent. - Hospitalizations: : No recent hospitalization is reported. Screenin:30 Abuse screen: Denies threats or abuse. Denies injuries from another. Nutritional bp screening: No deficits noted. Tuberculosis screening: No symptoms or risk factors identified. Fall Risk None identified. Vital Signs: 12:16 BP 124 / 87; Pulse 67; Resp 16; Temp 98.2; Pulse Ox 100% on R/A; Pain 0/10; hb 14:00 BP 131 / 79; Pulse 71; Resp 14; Pulse Ox 100% ; bp ED Course: 12:04 Patient arrived in ED. as 12:16 Triage completed. hb 12:17 Arm band placed on. hb 12:25 Ottoniel Greene MD is Attending Physician. rn 12:30 Patient has correct armband on for positive identification. Bed in low position. Call bp light in reach. Side rails up X2. Adult w/ patient. 12:33 EKG done, by special effects technician. reviewed by Ottoniel Greene MD. at1 12:39 Sonu Morales, RN is Primary Nurse. bp 12:59 Inserted saline lock: 20 gauge in right antecubital area, using aseptic technique. bp Blood collected. 14:14 No provider procedures requiring assistance completed. IV discontinued, intact, bp bleeding controlled, No redness/swelling at site. Pressure dressing applied. Administered Medications: No medications were administered Outcome: 13:52 Discharge ordered by . rn 14:03 Patient left the ED. hj 14:15 Discharged to home ambulatory, with family. bp 14:15 Condition: stable 14:15 Discharge instructions given to patient, Instructed on discharge instructions, follow up and referral plans. Demonstrated understanding of instructions, follow-up care. Signatures: Rizwana Lockhart Roman, MD MD rn Gonzales, Amanda, mechanical engineering technician EKG Tat1 Farhat Sams RN RN hj Kimmy Aparicio RN RN hb Sonu Morales, LORA RN bp
--- NOTE | 2018-11-18 13:53 | EDPHYS ---
Physician Documentation [facility] Name: Zeynep Francis Age: 58 yrs Sex: Female : 1960 Arrival Date: 11/18/2018 Time: 12:04 Bed 7 Private MD: ED Physician Ottoniel Greene HPI: 11/18 13:47 This 58 yrs old Female presents to ER via Ambulatory with complaints of rn Abnormal EKG, discombobulated. 13:47 Patient reports ran out of metformin recently, thought to take her actos, realized that rn actos used to make her confused and "discombobulated", seen by pcp today for refill, ekg obtained for intermittent chest pains, sent here for evaluation. Patient reports anxiety and chest pain, has been moving and stressful lately, are brief episodes, no fever/cough/trauma. NO current chest pain. Reports increased urination and feeling generalized weakness, also reports tingling of face/hands. . Onset: The symptoms/episode began/occurred at an unknown time. Severity of symptoms: At their worst the symptoms were mild in the emergency department the symptoms have improved. The patient has experienced similar episodes in the past. The patient has been recently seen by a physician:. Historical: - Allergies: 12:17 PENICILLINS; hb 12:17 Aspirin; hb - Home Meds: 12:17 albuterol sulfate 2.5 mg /3 mL (0.083 %) Inhl nebu [Active]; glipizide 10 mg Oral tab hb [Active]; lisinopril 2.5 mg Oral tab 1 tab once daily [Active]; metformin 1,000 mg Oral tab 1 tab 2 times per day [Active]; pioglitazone 30 mg Oral tab 1 tab once daily [Active]; - PMHx: 12:17 Diabetes - NIDDM; Hyperlipidemia; Hypertension; hb - PSHx: 12:17 Cholecystectomy; c section; hb - Immunization history:: Adult Immunizations up to date. - Social history:: Smoking status: Patient/guardian denies using tobacco. - Ebola Screening: : No symptoms or risks identified at this time. - Family history:: not pertinent. - Hospitalizations: : No recent hospitalization is reported. ROS: 13:47 Constitutional: Negative for fever, chills, and weight loss, Eyes: Negative for injury, rn pain, redness, and discharge, Neck: Negative for injury, pain, and swelling, Cardiovascular: Negative for edema, Respiratory: Negative for shortness of breath, cough, wheezing, and pleuritic chest pain, Abdomen/GI: Negative for abdominal pain, nausea, vomiting, diarrhea, and constipation, MS/Extremity: Negative for injury and deformity, Skin: Negative for injury, rash, and discoloration, Neuro: Negative for headache, numbness, tingling, and seizure. Exam: 13:47 Constitutional: This is a well developed, well nourished patient who is awake, alert, rn and in no acute distress. Head/Face: Normocephalic, atraumatic. Eyes: Pupils equal round and reactive to light, extra-ocular motions intact. Lids and lashes normal. Conjunctiva and sclera are non-icteric and not injected. Cornea within normal limits. Periorbital areas with no swelling, redness, or edema. ENT: dry MM Neck: Trachea midline, no thyromegaly or masses palpated, and no cervical lymphadenopathy. Supple, full range of motion without nuchal rigidity, or vertebral point tenderness. No Meningismus. Cardiovascular: Regular rate and rhythm. No pulse deficits. Respiratory: Lungs have equal breath sounds bilaterally, clear to auscultation. No increased work of breathing, no retractions or nasal flaring. Abdomen/GI: soft, non-tender Skin: Warm, dry MS/ Extremity: Pulses equal, no cyanosis. Neurovascular intact. Full, normal range of motion. Equal circumference. Neuro: Awake and alert, GCS 15, oriented to person, place, time, and situation. Cranial nerves II-XII grossly intact. Motor strength 5/5 in all extremities. Sensory grossly intact. Cerebellar exam normal. Normal gait. Vital Signs: 12:16 BP 124 / 87; Pulse 67; Resp 16; Temp 98.2; Pulse Ox 100% on R/A; Pain 0/10; hb 14:00 BP 131 / 79; Pulse 71; Resp 14; Pulse Ox 100% ; bp MDM: 12:25 Patient medically screened. rn 13:47 Differential Diagnosis hyperglycemia, medication side effect, anxiety. Data reviewed: rn vital signs, nurses notes, lab test result(s), EKG, and as a result, I will discharge patient. Counseling: I had a detailed discussion with the patient and/or guardian regarding: the historical points, exam findings, and any diagnostic results supporting the discharge/admit diagnosis, lab results, the need for outpatient follow up, to return to the emergency department if symptoms worsen or persist or if there are any questions or concerns that arise at home. Special discussion: I discussed with the patient/guardian in detail that at this point there is no indication for admission to the hospital. It is understood, however, that if the symptoms persist or worsen the patient needs to return immediately for re-evaluation. ED course: Already got refill of metformin, told her to not take her actos again, and f/u with pcp/cardiology if continues to have chest discomfort. . 11/18 12:33 Order name: CBC with Diff; Complete Time: 13:18 rn 11/18 12:33 Order name: Basic Metabolic Panel; Complete Time: 13:18 rn 11/18 12:33 Order name: EKG; Complete Time: 12:33 rn 11/18 12:33 Order name: Troponin (emerg Dept Use Only); Complete Time: 13:18 rn 11/18 12:42 Order name: Urine Dipstick--Ancillary (enter results); Complete Time: 13:18 bd 11/18 12:33 Order name: IV Start; Complete Time: 12:59 rn 11/18 12:33 Order name: Urine Dipstick-Ancillary (obtain specimen); Complete Time: 12:59 rn 11/18 12:33 Order name: EKG - Nurse/Tech; Complete Time: 12:58 rn 11/18 12:33 Order name: Glucose Level; Complete Time: 12:59 rn Administered Medications: No medications were administered Disposition: 11/18/18 13:52 Discharged to Home. Impression: Chest pain, unspecified, Dehydration, Patient's unintentional underdosing of medication regimen for other reason. - Condition is Stable. - Discharge Instructions: Nonspecific Chest Pain, Dehydration, Adult. - Medication Reconciliation Form, Thank You Letter, Antibiotic Education, Prescription Opioid Use form. - Follow up: Private Physician; When: As needed; Reason: Recheck today's complaints, Re-evaluation by your physician. - Problem is new. - Symptoms have improved. Signatures: Dispatcher [employer] EDMS Ottoniel Greene MD MD rn Joaquin, Henry, RN RN hj Baxter, Heather, RN RN Corrections: (The following items were deleted from the chart) 14:03 13:52 11/18/2018 13:52 Discharged to Home. Impression: Chest pain, unspecified; hj Dehydration; Patient's unintentional underdosing of medication regimen for other reason. Condition is Stable. Forms are Medication Reconciliation Form, Thank You Letter, Antibiotic Education, Prescription Opioid Use. Follow up: Private Physician; When: As needed; Reason: Recheck today's complaints, Re-evaluation by your physician. Problem is new. Symptoms have improved. rn
--- NOTE | 2018-11-20 10:32 | EKG ---
Test Date: 2018-11-18 Test Time: 12:28:39 Customer Records Division Supervisor: ERIKA MEASUREMENT RESULTS: Intervals: Rate: 63 AL: 178 QRSD: 66 QT: 412 QTc: 421 [place]: P: 23 AL: 178 QRS: 6 T: 13 INTERPRETIVE STATEMENTS: Normal sinus rhythm Low voltage QRS Borderline ECG Compared to ECG 05/20/2018 19:25:28 Myocardial infarct finding no longer present Electronically Signed On 11-19-18 08:12:18 CDT by Per Sorensen
== END 2018-11-18 14:03 | disposition home or self-care (01) ==
LOC: ER 12:03
DX: R07.9 Chest pain, unspecified (principal); E86.0 Dehydration; Z91.138 Patient's unintentional underdosing of medication regimen for other reason; R94.31 Abnormal electrocardiogram [ECG] [EKG]; I10 Essential (primary) hypertension; E11.9 Type 2 diabetes mellitus without complications; E78.5 Hyperlipidemia, unspecified
CPT/HCPCS: 36415; 80048; 81003; 84484; 85025; 93005; 99283

== ENCOUNTER 2019-08-12 12:24 | Emergency (ER) | payer SELFPAY ==
--- NOTE | 2019-08-12 13:13 | RAD REPORT ---
EXAM DESCRIPTION: RAD - Chest Pa And Lat (2 Views) - 08/12/2019 1:04 pm CLINICAL HISTORY: Congestion;Cough Chest pain. COMPARISON: Chest Single View dated 05/20/2018; Chest Single View dated 11/30/2017; Chest Single View dated 07/18/2017; Chest Single View dated 05/26/2017 FINDINGS: The lungs are clear. The heart is normal in size. No displaced fractures. IMPRESSION: No acute or concerning finding suspected.
--- NOTE | 2019-08-12 13:33 | ER ---
Nurse's Notes [facility] Name: Zeynep Hurst Age: 58 yrs Sex: Female : 1960 Arrival Date: 08/12/2019 Time: 12:28 Bed 28 Private MD: Diagnosis: Acute upper respiratory infection, unspecified Presentation: 08/12 12:31 Presenting complaint: Sore throat, pain with cough, chills, headache, body aches, N/V, hb and malaise x 2 days. Denies fever. Tolerating fluids. Transition of care: patient was not received from another setting of care. Onset of symptoms was August 12, 2019. Risk Assessment: Do you want to hurt yourself or someone else? Patient reports no desire to harm self or others. Initial Sepsis Screen: Does the patient meet any 2 criteria? No. Patient's initial sepsis screen is negative. Does the patient have a suspected source of infection? No. Patient's initial sepsis screen is negative. Care prior to arrival: None. 12:31 Method Of Arrival: Ambulatory hb 12:31 Acuity: MARLI 4 hb Historical: - Allergies: 12:34 Aspirin; hb 12:34 PENICILLINS; hb - Home Meds: 12:34 albuterol sulfate 2.5 mg /3 mL (0.083 %) Inhl nebu [Active]; glipizide 10 mg Oral tab hb [Active]; lisinopril 2.5 mg Oral tab 1 tab once daily [Active]; metformin 1,000 mg Oral tab 1 tab 2 times per day [Active]; pioglitazone 30 mg Oral tab 1 tab once daily [Active]; - PMHx: 12:34 Diabetes - NIDDM; Hyperlipidemia; Hypertension; hb - PSHx: 12:34 Cholecystectomy; c section; hb - Immunization history:: Adult Immunizations up to date. - Social history:: Smoking status: Patient/guardian denies using tobacco. - Ebola Screening: : No symptoms or risks identified at this time. Screenin:51 Abuse screen: Denies threats or abuse. Denies injuries from another. Nutritional aj1 screening: No deficits noted. Tuberculosis screening: No symptoms or risk factors identified. 13:41 Fall Risk None identified. aj1 Assessment: 12:51 General: Appears in no apparent distress. uncomfortable, Behavior is calm, cooperative, aj1 appropriate for age. Pain: Complains of pain in chest, left aspect of posterior pharynx and right aspect of posterior pharynx Pain does not radiate. Pain currently is 7 out of 10 on a pain scale. Pain began 2-3 days ago. Neuro: Level of Consciousness is awake, alert, obeys commands, Oriented to person, place, time, situation. Cardiovascular: Reports chest pain, Heart tones S1 S2 present Patient's skin is warm and dry. Respiratory: Reports cough that is hacking, persistent Airway is patent Respiratory effort is even, unlabored, Respiratory pattern is regular, symmetrical, Breath sounds are clear bilaterally. GI: No signs and/or symptoms were reported involving the gastrointestinal system. : No signs and/or symptoms were reported regarding the genitourinary system. EENT: No signs and/or symptoms were reported regarding the EENT system. Derm: No signs and/or symptoms reported regarding the dermatologic system. Skin is pink, warm \T\ dry. normal. Musculoskeletal: No signs and/or symptoms reported regarding the musculoskeletal system. Circulation, motion, and sensation intact. 13:40 Reassessment: Patient appears in no apparent distress at this time. No changes from aj1 previously documented assessment. Patient and/or family updated on plan of care and expected duration. Pain level reassessed. Patient is alert, oriented x 3, equal unlabored respirations, skin warm/dry/pink. Vital Signs: 12:34 BP 122 / 88; Pulse 62; Resp 16; Temp 98.2(TE); Pulse Ox 100% on R/A; Weight 88.45 kg; hb Height 4 ft. 11 in. (149.86 cm); Pain 7/10; 12:34 Body Mass Index 39.38 (88.45 kg, 149.86 cm) hb ED Course: 12:28 Patient arrived in ED. mr 12:33 Triage completed. hb 12:34 Arm band placed on. hb 12:36 [facility] Candelaria [facility]C [facility]. kb 12:36 James Montanez MD is Attending Physician. kb 12:49 Renay Avila, LORA is Primary Nurse. aj1 12:51 Patient has correct armband on for positive identification. Pulse ox on. NIBP on. aj1 12:51 No provider procedures requiring assistance completed. Patient maintains SpO2 aj1 saturation greater than 95% on room air. 13:05 Chest Pa And Lat (2 Views) XRAY In Process Unspecified. EDMS 13:07 Strep Sent. lt1 13:07 Flu Sent. lt1 13:40 Patient did not have IV access during this emergency room visit. aj1 Administered Medications: No medications were administered Outcome: 13:32 Discharge ordered by . maciej 13:41 Discharged to home ambulatory. aj1 13:41 Condition: good 13:41 Discharge instructions given to patient, Instructed on discharge instructions, follow up and referral plans. Demonstrated understanding of instructions, follow-up care. 13:42 Patient left the ED. aj1 Signatures: Dispatcher [employer] EDMS Marian Candelaria, GENERAL ACTIVITIES THERAPIST-C GENERAL ACTIVITIES THERAPIST-Renay Venegas, RN LORA aj1 Staci Turcios Heather, Janay Fowler RN [facility]
--- NOTE | 2019-08-12 13:34 | EDPHYS ---
Physician Documentation [facility] Name: Zeynep Hurst Age: 58 yrs Sex: Female : 1960 Arrival Date: 08/12/2019 Time: 12:28 Bed 28 Private MD: ED Physician James Montanez HPI: 08/12 13:31 This 58 yrs old Female presents to ER via Ambulatory with complaints of Chest kb Pain, Sore Throat, Breathing Difficulty. 13:31 The patient or guardian reports cough, that is intermittent, described as moderate, kb with no sputum, flu symptoms, low-grade fever, myalgias, hoarse voice. Onset: The symptoms/episode began/occurred 1 week(s) ago. Severity of symptoms: At their worst the symptoms were moderate, in the emergency department the symptoms are unchanged. Modifying factors: The symptoms are alleviated by nothing, the symptoms are aggravated by nothing. Associated signs and symptoms: Pertinent positives: nausea, rhinorrhea, sore throat, vomiting. The patient has not experienced similar symptoms in the past. The patient has not recently seen a physician. Historical: - Allergies: 12:34 Aspirin; hb 12:34 PENICILLINS; hb - Home Meds: 12:34 albuterol sulfate 2.5 mg /3 mL (0.083 %) Inhl nebu [Active]; glipizide 10 mg Oral tab hb [Active]; lisinopril 2.5 mg Oral tab 1 tab once daily [Active]; metformin 1,000 mg Oral tab 1 tab 2 times per day [Active]; pioglitazone 30 mg Oral tab 1 tab once daily [Active]; - PMHx: 12:34 Diabetes - NIDDM; Hyperlipidemia; Hypertension; hb - PSHx: 12:34 Cholecystectomy; c section; hb - Immunization history:: Adult Immunizations up to date. - Social history:: Smoking status: Patient/guardian denies using tobacco. - Ebola Screening: : No symptoms or risks identified at this time. ROS: 13:09 Neck: Negative for injury, pain, and swelling, Abdomen/GI: Negative for abdominal pain, kb nausea, vomiting, diarrhea, and constipation, Back: Negative for injury and pain, MS/Extremity: Negative for injury and deformity, Skin: Negative for injury, rash, and discoloration, Neuro: Negative for headache, weakness, numbness, tingling, and seizure. 13:09 Constitutional: Positive for body aches, chills, fatigue, malaise. 13:09 ENT: Positive for rhinorrhea, sinus congestion, sinus pain, sore throat. 13:09 Cardiovascular: Positive for chest pain, with cough. 13:09 Respiratory: Positive for cough, Negative for dyspnea on exertion, hemoptysis, orthopnea, pleurisy, shortness of breath, sputum production, wheezing. Exam: 13:30 Constitutional: This is a well developed, well nourished patient who is awake, alert, kb and in no acute distress. Head/Face: Normocephalic, atraumatic. Neck: Trachea midline, no thyromegaly or masses palpated, and no cervical lymphadenopathy. Supple, full range of motion without nuchal rigidity, or vertebral point tenderness. No Meningismus. Chest/axilla: Normal chest wall appearance and motion. Nontender with no deformity. No lesions are appreciated. Cardiovascular: Regular rate and rhythm with a normal S1 and S2. No gallops, murmurs, or rubs. Normal PMI, no JVD. No pulse deficits. Respiratory: Lungs have equal breath sounds bilaterally, clear to auscultation and percussion. No rales, rhonchi or wheezes noted. No increased work of breathing, no retractions or nasal flaring. Abdomen/GI: Soft, non-tender, with normal bowel sounds. No distension or tympany. No guarding or rebound. No evidence of tenderness throughout. Skin: Warm, dry with normal turgor. Normal color with no rashes, no lesions, and no evidence of cellulitis. MS/ Extremity: Pulses equal, no cyanosis. Neurovascular intact. Full, normal range of motion. Neuro: Awake and alert, GCS 15, oriented to person, place, time, and situation. Cranial nerves II-XII grossly intact. Motor strength 5/5 in all extremities. Sensory grossly intact. Cerebellar exam normal. Normal gait. 13:30 ENT: External ear(s): are unremarkable, Ear canal(s): are normal, TM's: are normal, Nose: is normal, Mouth: is normal, Posterior pharynx: is normal, Voice: is hoarse. Vital Signs: 12:34 BP 122 / 88; Pulse 62; Resp 16; Temp 98.2(TE); Pulse Ox 100% on R/A; Weight 88.45 kg; hb Height 4 ft. 11 in. (149.86 cm); Pain 7/10; 12:34 Body Mass Index 39.38 (88.45 kg, 149.86 cm) hb MDM: 12:37 Patient medically screened. kb 13:09 Data reviewed: vital signs, nurses notes. Data interpreted: Pulse oximetry: on room air kb is 100 %. Interpretation: normal. 13:31 Counseling: I had a detailed discussion with the patient and/or guardian regarding: the kb historical points, exam findings, and any diagnostic results supporting the discharge/admit diagnosis, lab results, radiology results, the need for outpatient follow up, a family practitioner, to return to the emergency department if symptoms worsen or persist or if there are any questions or concerns that arise at home. 08/12 12:37 Order name: Flu; Complete Time: 13:29 kb 08/12 12:37 Order name: Strep; Complete Time: 13:14 kb 08/12 12:45 Order name: Chest Pa And Lat (2 Views) XRAY; Complete Time: 13:18 kb 08/12 13:13 Order name: Throat Culture EDMS Administered Medications: No medications were administered Disposition: 19:01 Co-signature as Attending Physician, James Montanez MD Signing chart for administrative ps1 purposes. Available for consultation in ED. . Disposition: 08/12/19 13:32 Discharged to Home. Impression: Acute upper respiratory infection, unspecified. - Condition is Stable. - Discharge Instructions: Upper Respiratory Infection, Adult, Ircl-mg-Edwn, Viral Respiratory Infection, Zium-Se-Yybt. - Medication Reconciliation Form, Thank You Letter, Antibiotic Education, Prescription Opioid Use form. - Follow up: Emergency Department; When: As needed; Reason: Worsening of condition. Follow up: Private Physician; When: 2 - 3 days; Reason: Recheck today's complaints, Continuance of care, Re-evaluation by your physician. Signatures: Dispatcher [employer] EDMS Marian Candelaria, CHARLEE RAVI-Renay Venegas RN RN aj1 Kimmy Aparicio, RN RN hb James Montanez MD MD ps1 Corrections: (The following items were deleted from the chart) 13:42 13:32 08/12/2019 13:32 Discharged to Home. Impression: Acute upper respiratory aj1 infection, unspecified. Condition is Stable. Forms are Medication Reconciliation Form, Thank You Letter, Antibiotic Education, Prescription Opioid Use. Follow up: Emergency Department; When: As needed; Reason: Worsening of condition. Follow up: Private Physician; When: 2 - 3 days; Reason: Recheck today's complaints, Continuance of care, Re-evaluation by your physician. kb
[2019-08-12 14:28] VITALS: BP 122/88; TEMP 98.2; O2SAT 100
== END 2019-08-12 13:42 | disposition home or self-care (01) ==
LOC: ER 12:24
DX: J06.9 Acute upper respiratory infection, unspecified (principal); Z88.0 Allergy status to penicillin; Z88.6 Allergy status to analgesic agent; E11.9 Type 2 diabetes mellitus without complications; E78.5 Hyperlipidemia, unspecified; I10 Essential (primary) hypertension
CPT/HCPCS: 71046; 87070; 87081; 87804; 99284

== ENCOUNTER 2020-10-13 14:13 | Emergency (ER) | payer SELFPAY ==
--- OUTSIDE RECORDS SUMMARY | 2020-10-13 14:16 | XMS REPORT | Continuity of Care Document ---
:1960 Author Organization [facility] t Address [address] [place] [address] Care Team Providers Name Role Phone Ruff TRAV Attending Clinician Problems This patient has no known problems. Allergies, Adverse Reactions, Alerts This patient has no known allergies or adverse reactions. Medications This patient has no known medications. Procedures This patient has no known procedures. Encounters Start End Encounter Admission Attending Care Care Encounter Source Date/Time Date/Time Type Type Clinicians Facility Department ID 2020-06-05 2020-06-05 Emergency KENIA Ruff [id number] 22:11:00 23:40:00 Irineo Sanchez [id number] [place] [id number] [place] [id number] Results This patient has no known results.
[2020-10-13 15:01] LABS: Urine Blood NEGATIVE (NEG); Urine Glucose 2+ (NEG); Urine Protein NEGATIVE (NEG); Urine Specific Gravity 1.025 (1.005-1.030)
[2020-10-13 20:00] LABS: Absolute Lymphocytes (CBC) 0.6 K/uL (0.7-4.9); Basophils % 0.5 % (0-1.3); Hematocrit 41.5 % (36.0-45.0); Lymphocytes % 20.5 % (15.3-44.8); MPV 8.7 fL (7.6-11.3); RBC Red Blood Cell Count 4.82 M/uL (3.86-4.86)
[2020-10-13 20:02] LABS: Protime INR 1.1
[2020-10-13] MEDS ORDERED: NA CHLORIDE 0.9% 500 ML ONE (20:03)
[2020-10-13] MEDS ORDERED: BENZONATATE 100 MG CAP PO ONE (20:03)
--- NOTE | 2020-10-13 20:12 | RAD REPORT ---
EXAM DESCRIPTION: RAD - Chest Single View - 10/13/2020 8:00 pm CLINICAL HISTORY: Cough;Chest pain Chest pain. COMPARISON: Chest Pa And Lat (2 Views) dated 08/12/2019; Chest Single View dated 05/20/2018; Chest Sin gle View dated 11/30/2017; Chest Single View dated 07/18/2017 FINDINGS: Portable technique limits examination quality. The lungs are grossly clear. The heart is normal in size. No displaced fractures. IMPRESSION: No acute intrathoracic process suspected.
[2020-10-13 20:15] LABS: ALT/SGPT 17 U/L (12-78); AST/SGOT 20 U/L (15-37); Albumin 3.6 g/dL (3.4-5.0); Alkaline Phosphatase 98 U/L (45-117); BUN Blood Urea Nitrogen 14 mg/dL (7-18); Bicarbonate 25 mmol/L (21-32); Bilirubin Direct 0.1 mg/dL (0-0.2); Bilirubin Total 0.3 mg/dL (0.2-1.0); Ferritin 130.2 ng/mL (8-388); Glucose Level 373 mg/dL (74-106); Magnesium 2.3 mg/dL (1.8-2.4); NT PRO-BNP 14 pg/mL (<125); Potassium 4.2 mmol/L (3.5-5.1); Protein, Total 7.8 g/dL (6.4-8.2); Sodium Level 132 mmol/L (136-145); Troponin (Emerg Dept Use Only) < 0.02 ng/mL (0.0-0.045)
--- NOTE | 2020-10-13 20:50 | RAD REPORT ---
EXAM DESCRIPTION: US - Extremity Venous Uni Ltd - 10/13/2020 8:35 pm CLINICAL HISTORY: Pain;Swelling Leg swelling and edema. COMPARISON: Extrem Venous W Compress Reginald dated 05/26/2017 FINDINGS: Left lower extremity venous system was interrogated with Doppler technique. Normal flow, c ompressibility and augmentation was noted. There is no DVT present. IMPRESSION: No evidence of left lower extremity deep venous thrombosis.
[2020-10-13] MEDS ORDERED: METHYLPREDNISOLONE 40 MG INJ ONE (20:58)
[2020-10-13] MEDS ORDERED: INSULIN -REGULAR HUMAN 50 UNIT/0.5 ML ML ONE (20:58)
--- NOTE | 2020-10-13 21:23 | RAD REPORT ---
EXAM DESCRIPTION: CT - Chest For Pe Angio - 10/13/2020 9:13 pm CLINICAL HISTORY: Chest pain. Chest pain;Cough;SOB COMPARISON: <Comparisons> TECHNIQUE: CT angiogram of the pulmonary arteries was performed with MIP. All CT scans are performed using dose optimization technique as appropriate and may include automated exposure control or mA/KV adjustment according to patient size. FINDINGS: No evidence of pulmonary thromboembolism. No acute aortic finding demonstrated. Moderate bilateral ground-glass opacities are seen along the periphery of both lungs and in the lung bases. No significant pericardial or pleural fluid. No concerning bony finding. IMPRESSION: No evidence of pulmonary thromboembolism. Moderate bilateral ground-glass opacities seen along the periphery of both lungs and in the lung base s compatible with history of COVID-19 infection.
[2020-10-13] MEDS ORDERED: AZITHROMYCIN 250 MG TAB ONE (22:14)
--- NOTE | 2020-10-13 22:14 | EDPHYS ---
Physician Documentation [facility] Name: Zeynep Hurst Age: 59 yrs Sex: Female : 1960 Arrival Date: 10/13/2020 Time: 14:17 Bed 5 Private MD: ED Physician Buzz Zelaya HPI: 10/13 19:35 This 59 yrs old Female presents to ER via Ambulatory with complaints of cp COVID+, Chest Pain. 19:35 The patient or guardian reports cough, that is intermittent. cp 19:35 Onset: The symptoms/episode began/occurred 1 week(s) ago. Associated signs and cp symptoms: Pertinent positives: chest pain, Pertinent negatives: diarrhea, fever, vomiting. Severity of symptoms: in the emergency department the symptoms are unchanged despite home interventions. Patient reports testing positive for COVID-19 6 days ago. Historical: - Allergies: 14:24 Aspirin; sv 14:24 PENICILLINS; sv - PMHx: 14:24 Diabetes - NIDDM; Hyperlipidemia; Hypertension; sv - PSHx: 14:24 Cholecystectomy; c section; sv - Immunization history:: Flu vaccine is not up to date. - Social history:: Smoking status: Patient denies any tobacco usage or history of. ROS: 19:40 Constitutional: Negative for body aches, chills, fever, poor PO intake. cp 19:40 Eyes: Negative for injury, pain, redness, and discharge. cp 19:40 ENT: Negative for ear pain, sore throat, difficulty swallowing, difficulty handling secretions. 19:40 Cardiovascular: Positive for chest pain, Negative for edema, palpitations. 19:40 Respiratory: Positive for cough, "sounds productive", shortness of breath, on exertion. Negative for wheezing. 19:40 Abdomen/GI: Negative for abdominal pain, nausea, vomiting, and diarrhea, constipation, black/tarry stool, rectal bleeding. 19:40 Back: Negative for pain at rest, pain with movement. 19:40 : Positive for urinary frequency, burning with urination. 19:40 Skin: Negative for cellulitis, rash. 19:40 Neuro: Negative for altered mental status, dizziness, headache, syncope, weakness. 19:40 All other systems are negative. Exam: 19:42 ECG was reviewed by the Attending Physician. cp 19:45 Constitutional: The patient appears in no acute distress, alert, awake, cp non-diaphoretic, non-toxic, well developed, well nourished. 19:45 Head/Face: Normocephalic, atraumatic. cp 19:45 Eyes: Periorbital structures: appear normal, Conjunctiva: normal, no exudate, no injection, Sclera: no appreciated abnormality, Lids and lashes: appear normal, bilaterally. 19:45 ENT: External ear(s): are unremarkable, Nose: is normal, Mouth: Lips: moist, Oral mucosa: moist, Posterior pharynx: Airway: no evidence of obstruction, patent, Tonsils: are normal in appearance, erythema, is not appreciated, exudate, is not appreciated. 19:45 Neck: ROM/movement: is normal, is supple, without pain, no range of motions limitations, no meningismus. 19:45 Chest/axilla: Inspection: normal, Palpation: is normal, no crepitus, no tenderness. 19:45 Cardiovascular: Rate: normal, Rhythm: regular, Edema: is not appreciated, JVD: is not appreciated. 19:45 Respiratory: the patient does not display signs of respiratory distress, Respirations: normal, no use of accessory muscles, no retractions, labored breathing, is not present, Breath sounds: bronchial sounds, that are mild, are heard diffusely, decreased breath sounds, are not appreciated, stridor, is not appreciated, wheezing: is not appreciated. 19:45 Abdomen/GI: Inspection: abdomen appears normal, Palpation: abdomen is soft and non-tender, in all quadrants. 19:45 Back: pain, is absent, ROM is normal. 19:45 Skin: no rash present. 19:45 Neuro: Orientation: to person, place \\T\\ time. Mentation: is normal, Cerebellar function: is grossly normal, Motor: moves all fours, strength is normal, Sensation: is normal. Vital Signs: 14:21 BP 114 / 81; Pulse 109; Resp 18; Temp 98.2; Pulse Ox 97% ; Weight 83.91 kg; Height 4 sv ft. 11 in. (149.86 cm); Pain 9/10; 19:51 BP 132 / 74; Pulse 96; Resp 25; Pulse Ox 94% on R/A; rv 20:22 BP 122 / 75; Pulse 94; Resp 23; Pulse Ox 95% on R/A; rv 21:40 BP 134 / 73; Pulse 92; Resp 20; Pulse Ox 92% on R/A; wh 22:39 BP 130 / 77; Pulse 96; Resp 20; Pulse Ox 92% on R/A; wh 14:21 Body Mass Index 37.37 (83.91 kg, 149.86 cm) sv MDM: 19:27 Patient medically screened. zaida 19:32 Patient medically screened. zaida 22:10 Data reviewed: vital signs, nurses notes, lab test result(s), EKG, radiologic studies, cp CT scan, plain films. 22:10 Test interpretation: by ED physician or midlevel provider: ECG, plain radiologic cp studies. Counseling: I had a detailed discussion with the patient and/or guardian regarding: the historical points, exam findings, and any diagnostic results supporting the discharge/admit diagnosis, lab results, radiology results, the need for outpatient follow up, a family practitioner, to return to the emergency department if symptoms worsen or persist or if there are any questions or concerns that arise at home. Response to treatment: the patient's symptoms have markedly improved after treatment. ED course: VSS. Patient appears non-toxic and no signs of respiratory distress. Patient maintains oxygen sats above 90% on RA after ambulation. Will discharge to home for continued monitoring. 10/13 14:52 Order name: Urine Dipstick--Ancillary (enter results); Complete Time: 19:28 em1 10/13 19:31 Order name: Basic Metabolic Panel cp / 19:31 Order name: CBC with Diff cp 10/13 19:31 Order name: LFT's; Complete Time: 20:32 cp 10/13 19:31 Order name: Magnesium; Complete Time: 20:32 cp /04 19:31 Order name: NT PRO-BNP; Complete Time: 20:32 cp /04 19:31 Order name: PT-INR; Complete Time: 20:32 cp /04 19:31 Order name: Troponin (emerg Dept Use Only); Complete Time: 20:32 cp /04 19:31 Order name: XRAY Chest (1 view); Complete Time: 20:32 cp /04 19:31 Order name: Ferritin; Complete Time: 20:32 cp / 19:31 Order name: CRP; Complete Time: 20:32 cp /04 19:31 Order name: D-Dimer; Complete Time: 20:32 cp 02/04 19:31 Order name: Basic Metabolic Panel; Complete Time: 20:32 EDMS 02/04 21:48 Interpretation: Normal except: NA 132; GLUC 373; GFR 62; CA 8.4. cp 02/04 19:31 Order name: CBC with Automated Diff; Complete Time: 20:32 EDMS /04 14:52 Order name: Urine Dipstick-Ancillary (obtain specimen); Complete Time: 14:52 em1 10/13 19:31 Order name: EKG; Complete Time: 19:32 cp /04 19:31 Order name: Cardiac monitoring; Complete Time: 19:49 cp /04 19:31 Order name: EKG - Nurse/Tech; Complete Time: 19:49 cp / 19:31 Order name: IV Saline Lock; Complete Time: 19:49 cp /04 19:31 Order name: Labs collected and sent; Complete Time: 19:49 cp 10/13 19:31 Order name: O2 Per Protocol; Complete Time: 19:49 cp 10/13 19:31 Order name: O2 Sat Monitoring; Complete Time: 19:49 cp /04 19:31 Order name: US Extremity Venous Unilateral Ltd; Complete Time: 21:47 cp /04 21:47 Interpretation: Report reviewed. cp 10/13 20:34 Order name: CT Chest For PE Angio; Complete Time: 21:47 cp EC:42 Rate is 97 beats/min. Rhythm is regular. WI interval is normal. QRS interval is normal. cp QT interval is normal. T waves are Inverted in lead III. Interpreted by me. Reviewed by me. Administered Medications: 19:49 Drug: NS 0.9% 500 ml Route: IV; Rate: bolus; Site: right antecubital; rv 22:41 Follow up: Response: No adverse reaction; IV Status: Completed infusion 19:49 Drug: Tessalon Perle 200 mg Route: PO; rv 22:41 Follow up: Response: No adverse reaction 20:48 Drug: NovoLIN R 10 units {Co-Signature: rv (Burke Rios RN).} Route: Sub-Q; Site: wh right lower abdomen; 22:41 Follow up: Response: No adverse reaction 20:48 Drug: SOLU-Medrol 80 mg Route: IVP; Site: right antecubital; 22:41 Follow up: Response: No adverse reaction 22:00 Drug: Zithromax 500 mg Route: PO; 22:40 Follow up: Response: No adverse reaction 22:18 Drug: Albuterol HFA Inhaler 2 puffs Route: Inhalation; 22:40 Follow up: Response: No adverse reaction Disposition: 10/14 05:58 Co-signature as Attending Physician, Buzz Zelaya MD I agree with the assessment and zaida plan of care. Disposition: 10/13/20 22:13 Discharged to Home. Impression: Coronavirus infection, unspecified, Pneumonia due to other specified infectious organisms. - Condition is Stable. - Discharge Instructions: Community-Acquired Pneumonia, Adult, COVID-19. - Prescriptions for ivermectin 3 mg Oral tablet - take 5 tablet by ORAL route every other day x2 doses; 10 tablet. Tessalon Perles 100 mg Oral Capsule - take 2 capsule by ORAL route every 8 hours As needed; 30 capsule. Zithromax Z- James 250 mg Oral Tablet - take 1 tablet by ORAL route as directed for 5 days Day 1 - take two (2) tablets one time. Day 2, 3, 4 , 5 take one (1) tablet once daily.; 6 tablet. Prednisone 20 mg Oral Tablet - take 2 tablets by ORAL route once daily for 5 days then 1 tablet daily for 5 days; 15 tablet. - Medication Reconciliation Form, Thank You Letter, Antibiotic Education, Prescription Opioid Use form. - Follow up: Private Physician; When: 1 - 2 days; Reason: Recheck today's complaints. - Problem is new. - Symptoms have improved. Signatures: Dispatcher [employer] Melany Escalante, RN Buzz Gomez MD MD cha Martinez, Eric em1 Buzz Wahl PA PA cp Habalo, Winsy, RN RN Burke Rios RN RN rv Burke Rios RN rv Corrections: (The following items were deleted from the chart) 10/13 21:49 21:48 Normal except: NA 132; GLUC 373; GFR 62. cp cp 22:41 22:13 10/13/2020 22:13 Discharged to Home. Impression: Coronavirus infection, wh unspecified; Pneumonia due to other specified infectious organisms. Condition is Stable. Forms are Medication Reconciliation Form, Thank You Letter, Antibiotic Education, Prescription Opioid Use. Follow up: Private Physician; When: 1 - 2 days; Reason: Recheck today's complaints. Problem is new. Symptoms have improved. cp
--- NOTE | 2020-10-13 22:14 | ER ---
Nurse's Notes [facility] Name: Zeynep Hurst Age: 59 yrs Sex: Female : 1960 Arrival Date: 10/13/2020 Time: 14:17 Bed 5 Private MD: Diagnosis: Coronavirus infection, unspecified;Pneumonia due to other specified infectious organisms Presentation: 10/13 14:21 Chief complaint:. Chief complaint: Patient states: 1. Covid positive 6 days ago. CP and sv SOB for 2-3 days. No high fever. +weakness and fatigue. 2. Dysuria for 1 week. Coronavirus screen: Client denies travel out of the [place] in the last 14 days. At this time, the client does not indicate any symptoms associated with coronavirus-19. Ebola Screen: Patient denies travel to an Ebola-affected area in the 21 days before illness onset. Initial Sepsis Screen: Does the patient meet any 2 criteria? HR > 90 bpm. No. Patient's initial sepsis screen is negative. Does the patient have a suspected source of infection? Yes: Productive cough/pneumonia. Risk Assessment: Do you want to hurt yourself or someone else? Patient reports no desire to harm self or others. Onset of symptoms was October 08, 2020. 14:21 Method Of Arrival: Ambulatory sv 14:21 Acuity: MARLI 3 sv Historical: - Allergies: 14:24 Aspirin; sv 14:24 PENICILLINS; sv - PMHx: 14:24 Diabetes - NIDDM; Hyperlipidemia; Hypertension; sv - PSHx: 14:24 Cholecystectomy; c section; sv - Immunization history:: Flu vaccine is not up to date. - Social history:: Smoking status: Patient denies any tobacco usage or history of. Screenin:50 Abuse screen: Denies threats or abuse. Denies injuries from another. Nutritional rv screening: No deficits noted. Tuberculosis screening: No symptoms or risk factors identified. Fall Risk None identified. Assessment: 19:50 General: Appears comfortable, Behavior is calm, cooperative. Pain: Complains of pain in rv chest Pain does not radiate. Pain began gradually. Neuro: Level of Consciousness is awake, alert, obeys commands, Oriented to person, place, time, situation. Cardiovascular: Patient's skin is warm and dry. Rhythm is regular. Respiratory: Reports cough that is persistent Airway is patent Respiratory effort is even, unlabored, Breath sounds are coarse bilaterally. 21:30 Reassessment: Patient appears in no apparent distress at this time. Patient and/or wh family updated on plan of care and expected duration. Pain level reassessed. Patient is alert, oriented x 3, equal unlabored respirations, skin warm/dry/pink. 22:30 Reassessment: Patient appears in no apparent distress at this time. Patient and/or wh family updated on plan of care and expected duration. Pain level reassessed. Patient is alert, oriented x 3, equal unlabored respirations, skin warm/dry/pink. Vital Signs: 14:21 BP 114 / 81; Pulse 109; Resp 18; Temp 98.2; Pulse Ox 97% ; Weight 83.91 kg; Height 4 sv ft. 11 in. (149.86 cm); Pain 9/10; 19:51 BP 132 / 74; Pulse 96; Resp 25; Pulse Ox 94% on R/A; rv 20:22 BP 122 / 75; Pulse 94; Resp 23; Pulse Ox 95% on R/A; rv 21:40 BP 134 / 73; Pulse 92; Resp 20; Pulse Ox 92% on R/A; wh 22:39 BP 130 / 77; Pulse 96; Resp 20; Pulse Ox 92% on R/A; wh 14:21 Body Mass Index 37.37 (83.91 kg, 149.86 cm) sv ED Course: 14:17 Patient arrived in ED. mr 14:21 Arm band placed on. sv 14:24 Triage completed. sv 14:49 UA collected, ok'd per Dr. Ruiz. ll1 17:18 Irineo Ruiz MD is Attending Physician. kdr 19:19 Burke Rios, LORA is Primary Nurse. rv 19:19 Buzz Wahl PA is PHCP. cp 19:19 Irineo Ruiz MD is Attending Physician. cp 19:27 Attending Physician role handed off by Irineo Ruiz MD zaida 19:27 Buzz Zelaya MD is Attending Physician. zaida 19:40 Inserted saline lock: 20 gauge in right antecubital area, using aseptic technique. rv Blood collected. 19:40 Initial lab(s) drawn, by il, sent to lab. rv 19:50 EKG done, by ED staff, reviewed by Buzz STRICKLAND. rv 19:51 Patient has correct armband on for positive identification. rv 19:51 Patient maintains SpO2 saturation greater than 95% on room air. rv 19:51 No provider procedures requiring assistance completed. rv 19:59 XRAY Chest (1 view) In Process Unspecified. EDMS 20:13 Notified Nurse Practitioner and/or Physician Still Runner of a critical lab result(s), D sg Dimer elevated. 20:35 US Extremity Venous Unilateral Ltd In Process Unspecified. EDMS 21:12 CT Chest For PE Angio In Process Unspecified. EDMS 22:40 IV discontinued, intact, bleeding controlled, No redness/swelling at site. wh Administered Medications: 19:49 Drug: NS 0.9% 500 ml Route: IV; Rate: bolus; Site: right antecubital; rv 22:41 Follow up: Response: No adverse reaction; IV Status: Completed infusion 19:49 Drug: Tessalon Perle 200 mg Route: PO; rv 22:41 Follow up: Response: No adverse reaction 20:48 Drug: NovoLIN R 10 units {Co-Signature: julita (Burke Rios RN).} Route: Sub-Q; Site: right lower abdomen; 22:41 Follow up: Response: No adverse reaction 20:48 Drug: SOLU-Medrol 80 mg Route: IVP; Site: right antecubital; 22:41 Follow up: Response: No adverse reaction 22:00 Drug: Zithromax 500 mg Route: PO; 22:40 Follow up: Response: No adverse reaction 22:18 Drug: Albuterol HFA Inhaler 2 puffs Route: Inhalation; 22:40 Follow up: Response: No adverse reaction Outcome: 22:13 Discharge ordered by . cp 22:40 Discharged to home ambulatory. 22:40 Condition: stable 22:40 Discharge instructions given to patient, Instructed on discharge instructions, follow up and referral plans. medication usage, POC Demonstrated understanding of instructions, follow-up care, medications, POC Prescriptions given X 4. 22:41 Patient left the ED. Signatures: Dispatcher [employer] EDMS Melany Hobbs RN RN sv Gay, Steven, RN RN sg Anderson, Corey, MD MD cha Rittger, Kevin, MD MD kdr Rivera, Mary mr Page, Corey, PA PA cp Toñito Pimentel, RN RN Burke Rios RN RN Kumar James RN RN 1 Burke Rios RN rv Corrections: (The following items were deleted from the chart) 14:25 14:21 Chief complaint: Patient states: Covid positive 6 days ago. CP and SOB for 2-3 sv days. No high fever. +weakness and fatigue sv 22:00 21:40 BP 134 / 73; Pulse 92bpm; Resp 18bpm; Pulse Ox 95% RA; [facility] 22:39 21:40 BP 134 / 73; Pulse 92bpm; Resp 18bpm; Pulse Ox 92% RA; [facility]
[2020-10-13] MEDS ORDERED: ALBUTEROL INHALER 60 PUFF/8 GM IH ONE (22:32)
[2020-10-13 23:05] VITALS: TEMP 98.2
[2020-10-13 23:08] VITALS: O2SAT 92
[2020-10-13 23:09] VITALS: BP 130/77
== END 2020-10-13 22:41 | disposition home or self-care (01) ==
LOC: ER 14:13
DX: U07.1 COVID-19 (principal); J16.8 Pneumonia due to other specified infectious organisms; I10 Essential (primary) hypertension; Z88.0 Allergy status to penicillin; Z88.6 Allergy status to analgesic agent
CPT/HCPCS: 36415; 71045; 71275; 80048; 80076; 81003; 82728; 83735; 83880; 84484; 85025; 85379; 85610; 86140; 93005; 93971; 96361; 96372; 96374; 99285; J2920; J7040; Q9967

== ENCOUNTER 2020-10-17 15:12 | Emergency (ER) | payer SELFPAY ==
--- NOTE | 2020-10-17 17:22 | RAD REPORT ---
EXAM DESCRIPTION: RAD - Chest Pa And Lat (2 Views) - 10/17/2020 5:13 pm CLINICAL HISTORY: SOB, chest pain, chills, COVID positive October 07 COMPARISON: Portable October 13, two view chest August 2019 TECHNIQUE: Frontal and lateral views of the chest were obtained. FINDINGS: The lungs are normal volume. Patient has a baseline of interstitial opacification. There i s superimposed patchy alveolar opacities in the lower lung graham and areas of interstitial thickenin g seen. Heart size is normal and central vasculature is within normal limits. No pleural effusion or pneumothorax seen. No acute bony finding noted. No aortic abnormality. IMPRESSION: Interstitial and alveolar opacification superimposed on baseline interstitial pattern. Pattern is most consistent with viral pneumonia. In the current clinical environment and given the hi story, bilateral COVID-19 pneumonia is the single most likely etiology.
[2020-10-17] MEDS ORDERED: METHYLPREDNISOLONE 125 MG INJ ONE (20:19)
[2020-10-17] MEDS ORDERED: CEFTRIAXONE/SWI 1gm 1 GM/10 ML SYR ONE (20:20)
[2020-10-17] MEDS ORDERED: NA CHLORIDE 0.9% 1,000 ML ONE (20:20)
[2020-10-17] MEDS ORDERED: AZITHROMYCIN 500 MG INJ IVPB ONE (20:20)
[2020-10-17] MEDS ORDERED: NA CHLORIDE 0.9% 250 ML ONE (20:20)
[2020-10-17 20:56] LABS: Absolute Lymphocytes (CBC) 0.4 K/uL (0.7-4.9); Basophils % 0.2 % (0-1.3); Hematocrit 38.5 % (36.0-45.0); Lymphocytes % 6.6 % (15.3-44.8); MPV 8.1 fL (7.6-11.3); Protime INR 1.2; RBC Red Blood Cell Count 4.47 M/uL (3.86-4.86)
--- NOTE | 2020-10-17 21:39 | EDPHYS ---
Physician Documentation [facility] Name: Zeynep Hurst Age: 59 yrs Sex: Female : 1960 Arrival Date: 10/17/2020 Time: 15:13 Bed 6 Private MD: ED Physician Capo Kc HPI: 10/17 19:53 This 59 yrs old Female presents to ER via Wheelchair with complaints of ma2 Shortness Of Breath. 19:53 The patient has shortness of breath at rest. Onset: The symptoms/episode began/occurred ma2 gradually, 2 week(s) ago. Associated signs and symptoms: Pertinent positives: productive cough, Pertinent negatives: diaphoresis, fever, loss of consciousness, visual changes. Severity of symptoms: At their worst the symptoms were moderate in the emergency department the symptoms are unchanged. The patient has experienced similar episodes in the past. Historical: - Allergies: 15:19 Aspirin; sv 15:19 PENICILLINS; sv - PMHx: 15:19 Diabetes - NIDDM; Hyperlipidemia; Hypertension; sv - PSHx: 15:19 Cholecystectomy; c section; sv - Immunization history:: Adult Immunizations up to date. - Social history:: Smoking status: Patient denies any tobacco usage or history of. Patient/guardian denies using alcohol, street drugs, The patient lives with family. - Family history:: not pertinent. ROS: 19:53 Constitutional: Negative for fever, chills, and weight loss. ma2 19:53 All other systems are negative. Exam: 19:53 Head/Face: Normocephalic, atraumatic. Eyes: Pupils equal round and reactive to light, ma2 extra-ocular motions intact. Lids and lashes normal. Conjunctiva and sclera are non-icteric and not injected. Cornea within normal limits. Periorbital areas with no swelling, redness, or edema. ENT: Nares patent. No nasal discharge, no septal abnormalities noted. Tympanic membranes are normal and external auditory canals are clear. Oropharynx with no redness, swelling, or masses, exudates, or evidence of obstruction, uvula midline. Mucous membranes moist. Neck: Trachea midline, no thyromegaly or masses palpated, and no cervical lymphadenopathy. Supple, full range of motion without nuchal rigidity, or vertebral point tenderness. No Meningismus. Abdomen/GI: Soft, non-tender, with normal bowel sounds. No distension or tympany. No guarding or rebound. No evidence of tenderness throughout. Back: No spinal tenderness. No costovertebral tenderness. Full range of motion. Female : Normal external genitalia. MS/ Extremity: Pulses equal, no cyanosis. Neurovascular intact. Full, normal range of motion. Neuro: Awake and alert, GCS 15, oriented to person, place, time, and situation. Cranial nerves II-XII grossly intact. Motor strength 5/5 in all extremities. Sensory grossly intact. Cerebellar exam normal. Normal gait. 19:53 Constitutional: The patient appears in obvious distress, mildly distressed. 19:53 Respiratory: mild respiratory distress is noted, Respirations: accessory muscle usage, is absent, Breath sounds: bronchial sounds, that are mild, are scattered, Respiratory rate: 22 Vital Signs: 15:20 BP 116 / 74; Pulse 86; Resp 28; Temp 98; Pulse Ox 91% on R/A; Weight 81.65 kg; Height 4 sv ft. 11 in. (149.86 cm); 21:00 BP 118 / 81; Pulse 93; Resp 24; Pulse Ox 96% on R/A; wh 22:00 BP 118 / 73; Pulse 82; Resp 20; Pulse Ox 95% on R/A; wh 15:20 Body Mass Index 36.36 (81.65 kg, 149.86 cm) sv 15:20 Pt placed on O2 \T\ 2L per NC. O2 sat up to 98%. RR-26 sv MDM: 19:49 Patient medically screened. fl2 19:53 Differential diagnosis: Anemia asthma, Bronchitis pneumonia, reactive airway disease. ma2 20:23 Data reviewed: vital signs, nurses notes. ma2 21:38 Counseling: I had a detailed discussion with the patient and/or guardian regarding: the [facility] historical points, exam findings, and any diagnostic results supporting the discharge/admit diagnosis, the presence of at least one elevated blood pressure reading (>120/80) during this emergency department visit, the need for outpatient follow up. 10/17 19:53 Order name: CMP ma2 10/17 19:53 Order name: CBC with Diff ma2 10/17 19:54 Order name: CBC with Automated Diff EDMS 10/17 19:56 Order name: Magnesium ma2 10/17 19:56 Order name: NT PRO-BNP [facility] 10/17 19:56 Order name: PT-INR; Complete Time: 21:25 fl2 10/17 19:56 Order name: Troponin (emerg Dept Use Only) [facility] 10/17 20:01 Order name: Blood Culture Adult (2) rv 10/17 20:01 Order name: Blood Culture [facility] 10/17 20:46 Order name: Comprehensive Metabolic Panel EDAL 10/17 20:49 Order name: Bilirubin Direct [facility] 10/17 20:57 Order name: Manual Differential [place] 10/17 15:28 Order name: EKG; Complete Time: 15:29 sv 10/17 15:28 Order name: EKG - Nurse/Tech; Complete Time: 15:28 sv 10/17 16:32 Order name: Chest Pa And Lat (2 Views) XRAY; Complete Time: 19:51 ss 10/17 19:56 Order name: Cardiac monitoring; Complete Time: 20:08 [facility] 10/17 19:56 Order name: IV Saline Lock; Complete Time: 20:09 [facility] 10/17 19:56 Order name: Labs collected and sent; Complete Time: 20:09 [facility] 10/17 19:56 Order name: O2 Per Protocol; Complete Time: 20:09 [facility] 10/17 19:56 Order name: O2 Sat Monitoring; Complete Time: 20:09 [facility] 10/17 20:30 Order name: Labs - recollect needed: all labs needed; Complete Time: 20:39 mw2 Administered Medications: 20:08 Drug: Albuterol HFA Inhaler 2 puffs {Note: PT OWN STOCK.} Route: Inhalation; rv 20:15 Drug: NS 0.9% 1000 ml Route: IV; Rate: 1 bolus; Site: right antecubital; wh 22:10 Follow up: Response: No adverse reaction; IV Status: Completed infusion wh 20:17 Drug: SOLU-Medrol 125 mg Route: IVP; Site: right antecubital; wh 22:11 Follow up: Response: No adverse reaction 20:35 Drug: Rocephin 1 grams Route: IV; Rate: calculated rate; Site: right antecubital; wh 22:10 Follow up: Response: No adverse reaction; IV Status: Completed infusion 20:37 Drug: AZITHromycin 500 mg Route: IVPB; Infused Over: 1 hrs; Site: right antecubital; 22:10 Follow up: Response: No adverse reaction; IV Status: Completed infusion 21:53 Drug: TORadol 30 mg Route: IVP; Site: right antecubital; 22:10 Follow up: Response: No adverse reaction 21:55 Drug: Insulin Regular Human 4 units {Co-Signature: travis (Zi Sparrow RN).} Route: IVP; Site: right antecubital; 22:10 Follow up: Response: No adverse reaction Disposition: 10/17/20 21:38 Discharged to Home. Impression: Coronavirus infection, unspecified, Pneumonia due to other specified infectious organisms. - Condition is Stable. - Discharge Instructions: Viral Respiratory Infection, [id number], COVID-19. - Prescriptions for Diclofenac Sodium 75 mg Oral Tablet Sustained Release - take 1 tablet by ORAL route 2 times per day; 30 tablet. - Medication Reconciliation Form, Thank You Letter, Antibiotic Education, Prescription Opioid Use form. - Follow up: Private Physician; When: Tomorrow; Reason: Continuance of care. Signatures: Dispatcher [employer] EDAL Melany Hobbs RN LORA Toñito Pimentel RN RN Capo Kc MD MD ma2 Herber Álvarez 2 Burke Rios RN RN rv Felix Umadhay RN fu Corrections: (The following items were deleted from the chart) 20:46 19:54 Comprehensive Metabolic Panel ordered. EDAL EDMS 20:49 19:57 HEPATIC FUNCTION+C.LAB.BRZ ordered. EDAL EDMS 22:11 21:38 10/17/2020 21:38 Discharged to Home. Impression: Coronavirus infection, wh unspecified; Pneumonia due to other specified infectious organisms. Condition is Stable. Forms are Medication Reconciliation Form, Thank You Letter, Antibiotic Education, Prescription Opioid Use. Follow up: Private Physician; When: Tomorrow; Reason: Continuance of care. ma2
--- NOTE | 2020-10-17 21:39 | ER ---
Nurse's Notes [facility] Name: Zeynep Hurst Age: 59 yrs Sex: Female : 1960 Arrival Date: 10/17/2020 Time: 15:13 Bed 6 Private MD: Diagnosis: Coronavirus infection, unspecified;Pneumonia due to other specified infectious organisms Presentation: 10/17 15:18 Chief complaint: Patient states: SOB and chest pain started today. c/o chills. COVID + sv on 10/07/20. Coronavirus screen: Client denies travel out of the [place] in the last 14 days. Client presents with at least one sign or symptom that may indicate coronavirus-19. Standard/surgical mask placed on the client. Provider contacted for isolation considerations. Client reports previous positive COVID test result. Date of collection: October 07, 2020. Ebola Screen: No symptoms or risks identified at this time. Risk Assessment: Do you want to hurt yourself or someone else? Patient reports no desire to harm self or others. Onset of symptoms was October 17, 2020. 15:18 Method Of Arrival: Wheelchair sv 15:18 Acuity: MARLI 2 sv 15:20 Initial Sepsis Screen: Does the patient meet any 2 criteria? RR > 20 per min. No. sv Patient's initial sepsis screen is negative. Does the patient have a suspected source of infection? Yes: Other: covid. Triage Assessment: 15:18 General: Appears in no apparent distress. uncomfortable, Behavior is calm, cooperative, sv appropriate for age. Pain: Complains of pain in chest. Neuro: Level of Consciousness is awake, alert, obeys commands, Oriented to person, place, time, situation. Respiratory: Reports shortness of breath at rest on exertion Respiratory effort is even, unlabored, Respiratory pattern is symmetrical, tachypnea Onset: The symptoms/episode began/occurred this morning, the patient has moderate shortness of breath. Derm: Skin is pink, warm \T\ dry. Historical: - Allergies: 15:19 Aspirin; sv 15:19 PENICILLINS; sv - PMHx: 15:19 Diabetes - NIDDM; Hyperlipidemia; Hypertension; sv - PSHx: 15:19 Cholecystectomy; c section; sv - Immunization history:: Adult Immunizations up to date. - Social history:: Smoking status: Patient denies any tobacco usage or history of. Patient/guardian denies using alcohol, street drugs, The patient lives with family. - Family history:: not pertinent. Screenin/07 21:00 Abuse screen: Denies threats or abuse. Denies injuries from another. Nutritional wh screening: No deficits noted. Tuberculosis screening: No symptoms or risk factors identified. Fall Risk None identified. Assessment: 10/17 15:28 Reassessment: Received VO from Dr Greene for EKG order. sv 16:32 Reassessment: Received VO from Dr Greene for CXR. ss 20:00 General: Appears in no apparent distress. Behavior is calm, cooperative, appropriate wh for age. Pain: Denies pain. Neuro: Level of Consciousness is awake, alert, obeys commands, Oriented to person, place, time, situation, Appropriate for age. Cardiovascular: Heart tones S1 S2 Rhythm is regular. Respiratory: Reports shortness of breath cough that is Airway is patent Respiratory effort is labored, Respiratory pattern is tachypnea Breath sounds with rhonchi. GI: Abdomen is round non-distended. : No signs and/or symptoms were reported regarding the genitourinary system. EENT: No signs and/or symptoms were reported regarding the EENT system. Derm: Skin is intact, is healthy with good turgor, Skin is pink, warm \T\ dry. normal. Musculoskeletal: Circulation, motion, and sensation intact. 21:00 Reassessment: Patient appears in no apparent distress at this time. No changes from previously documented assessment. Patient and/or family updated on plan of care and expected duration. Pain level reassessed. Patient is alert, oriented x 3, equal unlabored respirations, skin warm/dry/pink. 22:00 Reassessment: Patient appears in no apparent distress at this time. Patient and/or family updated on plan of care and expected duration. Pain level reassessed. Patient is alert, oriented x 3, equal unlabored respirations, skin warm/dry/pink. Vital Signs: 15:20 BP 116 / 74; Pulse 86; Resp 28; Temp 98; Pulse Ox 91% on R/A; Weight 81.65 kg; Height 4 sv ft. 11 in. (149.86 cm); 21:00 BP 118 / 81; Pulse 93; Resp 24; Pulse Ox 96% on R/A; wh 22:00 BP 118 / 73; Pulse 82; Resp 20; Pulse Ox 95% on R/A; wh 15:20 Body Mass Index 36.36 (81.65 kg, 149.86 cm) sv 15:20 Pt placed on O2 \T\ 2L per NC. O2 sat up to 98%. RR-26 sv ED Course: 15:13 Patient arrived in ED. ds1 15:19 Triage completed. sv 15:19 Arm band placed on. sv 15:28 EKG completed in triage. Results shown to MD. sv 17:10 Chest Pa And Lat (2 Views) XRAY In Process Unspecified. EDMS 19:49 Capo Kc MD is Attending Physician. ma2 19:50 Toñito Pimentel, LORA is Primary Nurse. 20:15 Inserted saline lock: 20 gauge in right antecubital area, using aseptic technique. Blood collected. 21:00 Patient has correct armband on for positive identification. Bed in low position. Call light in reach. Side rails up X 1. playground monitor on. Pulse ox on. NIBP on. 22:11 No provider procedures requiring assistance completed. IV discontinued, intact, wh bleeding controlled, No redness/swelling at site. Administered Medications: 20:08 Drug: Albuterol HFA Inhaler 2 puffs {Note: PT OWN STOCK.} Route: Inhalation; rv 20:15 Drug: NS 0.9% 1000 ml Route: IV; Rate: 1 bolus; Site: right antecubital; 22:10 Follow up: Response: No adverse reaction; IV Status: Completed infusion 20:17 Drug: SOLU-Medrol 125 mg Route: IVP; Site: right antecubital; 22:11 Follow up: Response: No adverse reaction 20:35 Drug: Rocephin 1 grams Route: IV; Rate: calculated rate; Site: right antecubital; 22:10 Follow up: Response: No adverse reaction; IV Status: Completed infusion 20:37 Drug: AZITHromycin 500 mg Route: IVPB; Infused Over: 1 hrs; Site: right antecubital; 22:10 Follow up: Response: No adverse reaction; IV Status: Completed infusion 21:53 Drug: TORadol 30 mg Route: IVP; Site: right antecubital; 22:10 Follow up: Response: No adverse reaction 21:55 Drug: Insulin Regular Human 4 units {Co-Signature: travis (Zi Sparrow RN).} Route: IVP; Site: right antecubital; 22:10 Follow up: Response: No adverse reaction Outcome: 21:38 Discharge ordered by MD. irwin 22:11 Discharged to home via wheelchair. 22:11 Condition: stable 22:11 Discharge instructions given to patient, Instructed on discharge instructions, follow up and referral plans. medication usage, POC Demonstrated understanding of instructions, follow-up care, medications, POC Prescriptions given X 1. 22:11 Patient left the ED. Signatures: Dispatcher [employer] EDMelany Mathias RN LORA Tiffani Conde1 Jessika Herrera RN Toñito Erickson RN Capo Jo MD MD ma2 Burke Rios RN RN rv Felix Umadhay RN fu Corrections: (The following items were deleted from the chart) 15:23 15:18 Chief complaint: Patient states: SOB and chest pain started today. sv sv 15:52 15:18 Chief complaint: Patient states: SOB and chest pain started today. c/o chills. sv COVID + on 10/07/20 sv
[2020-10-17 21:43] LABS: ALT/SGPT 12 U/L (12-78); Albumin 2.8 g/dL (3.4-5.0); Alkaline Phosphatase 80 U/L (45-117); BUN Blood Urea Nitrogen 13 mg/dL (7-18); Bicarbonate 24 mmol/L (21-32); Bilirubin Direct 0.2 mg/dL (0-0.2); Bilirubin Total 0.7 mg/dL (0.2-1.0); Glucose Level 421 mg/dL (74-106); NT PRO-BNP 85 pg/mL (<125); Protein, Total 7.6 g/dL (6.4-8.2); Sodium Level 135 mmol/L (136-145); Troponin (Emerg Dept Use Only) < 0.02 ng/mL (0.0-0.045)
[2020-10-17 21:48] LABS: Potassium 4.5 mmol/L (3.5-5.1)
[2020-10-17 21:50] LABS: AST/SGOT 19 U/L (15-37); Magnesium 2.4 mg/dL (1.8-2.4)
[2020-10-17] MEDS ORDERED: INSULIN -REGULAR HUMAN 50 UNIT/0.5 ML ML ONE (22:04)
[2020-10-17] MEDS ORDERED: KETOROLAC 30 MG/ML INJ ONE (22:05)
[2020-10-17 22:13] LABS: Blood Morphology Comment NOT SEEN (NOT SEEN); Platelet Estimate ADEQ
[2020-10-17 23:35] VITALS: TEMP 98
[2020-10-17 23:38] VITALS: BP 118/73; O2SAT 95
--- NOTE | 2020-10-18 18:42 | EKG ---
Test Date: 2020-10-17 Test Time: 20:01:43 Stereotype Finisher: MEASUREMENT RESULTS: Intervals: Rate: 94 NC: 154 QRSD: 66 QT: 342 QTc: 427 [place]: P: 31 NC: 154 QRS: 33 T: 21 INTERPRETIVE STATEMENTS: Normal sinus rhythm Normal ECG Compared to ECG 10/17/2020 15:27:05 ST (T wave) deviation no longer present Electronically Signed On 10-18-20 18:40:19 BELLMAN DRIVER by Jasvir An
--- NOTE | 2020-10-18 18:43 | EKG ---
Test Date: 2020-10-17 Test Time: 15:27:05 Crossword Puzzle Maker: LV MEASUREMENT RESULTS: Intervals: Rate: 94 WI: 140 QRSD: 48 QT: 348 QTc: 435 [place]: P: 29 WI: 140 QRS: 41 T: 22 INTERPRETIVE STATEMENTS: Normal sinus rhythm Junctional ST depression, probably normal Borderline ECG Compared to ECG 10/13/2020 19:35:30 ST (T wave) deviation now present Electronically Signed On 10-18-20 18:40:27 ENGINEERING PROGRAM MANAGER by Jasvir An
--- OUTSIDE RECORDS SUMMARY | 2020-10-19 01:37 | XMS REPORT | Continuity of Care Document ---
:1960 Author Organization [facility] t Address [address] [place] [address] Care Team Providers Name Role Phone Elzbieta RAVI Attending Clinician Problems This patient has no known problems. Allergies, Adverse Reactions, Alerts This patient has no known allergies or adverse reactions. Medications This patient has no known medications. Procedures This patient has no known procedures. Encounters Start End Encounter Admission Attending Care Care Encounter Source Date/Time Date/Time Type Type Clinicians Facility Department ID 2020-06-05 2020-06-05 Emergency KENIA Ruff [id number] 22:11:00 23:40:00 Irineo Sanchez [id number] [place] [id number] [place] [id number] Results This patient has no known results.
== END 2020-10-17 22:11 | disposition home or self-care (01) ==
LOC: ER 15:12
DX: U07.1 COVID-19 (principal); J12.82 Pneumonia due to coronavirus disease 2019; E11.9 Type 2 diabetes mellitus without complications; E78.5 Hyperlipidemia, unspecified; I10 Essential (primary) hypertension
CPT/HCPCS: 36415; 71046; 80053; 82248; 83735; 83880; 84484; 85025; 85610; 87040; 93005; 96365; 96375; 99285; J0456; J0696; J2930; J7030; J7050